=== PATIENT | female | born 1950 | race Caucasian/White ===

== ENCOUNTER → 2016-03-18 | Outpatient (CLI) | payer BC ==
[~2016-03-18] MED LIST: ASPI81TA28 PO; ATRIN INH; CETI10TA84 PO; CHOL1000 PO; CMD4 PO; EVS60 PO; FLUT0.15 NAE; IBUP-1050 PO; IRBE-43 PO; MONT1TAB3 PO; MULT-506 PO; TRIA37.5 PO
[2016-03-18 11:10] LABS: BASO % 0.9 %; BASO ABS # 0.08 K/uL (0-0.2); COMPLETE YES; EOS % 3.8 %; HEMATOCRIT 40.3 % (37-47); IG% 0.2 %; LYMPH % 30.4 %; LYMPH ABS # 2.71 K/uL (1.2-3.4); MEAN CORPUSCULAR HEMOGLOBIN 30.6 pg (25-34); MEAN CORPUSCULAR HGB CONC 34.7 g/dl (32-36); MEAN PLATELET VOLUME 10.3 fL (7.4-10.4); MONO % 5.2 %; NEUT % 59.5 %; PLATELET COUNT 275 K/uL (130-400); RED BLOOD COUNT 4.58 M/uL (4.2-5.4); WHITE BLOOD COUNT 8.92 K/uL (4.8-10.8)
[2016-03-18 11:58] LABS: BLOOD UREA NITROGEN 20 mg/dl (7-18); BUN/CREATININE RATIO 18.5 (10-20); CALCIUM 9.9 mg/dl (8.5-10.1); CARBON DIOXIDE 29 mmol/L (21-32); CHLORIDE 104 mmol/L (98-107); GLUCOSE 238 mg/dl (70-99); POTASSIUM 3.5 mmol/L (3.5-5.1); SODIUM 142 mmol/L (136-145)
== END | disposition home or self-care (01) ==
LOC: C.CPL 10:37
PROVIDERS: ATTEND Surgery
DX: D24.9 Benign neoplasm of unspecified breast (principal)

== ENCOUNTER → 2016-04-07 | Day surgery (SDC) | payer BC ==
[2016-03-25 15:23] VITALS: Ht 165.1 cm; Wt 100.0 kg
[~2016-04-07] VITALS: Ht 165.1 cm; Wt 100.0 kg
[~2016-04-07] MED LIST changes: +ATROPINE SULFATE 0.1 MG/ML 5ML SYR IV PRN; +CHLOROPROCAINE INJ ONE; +CIPROFLOXACIN / D5W 400 MG IV SCH; -CMD4 PO; +DEXAMETHASONE SOD INJ 4 MG/ML VIAL IV PRN; -EVS60 PO; +EpHEDrine SULFATE INJ 50 MG/ML AMP IV PRN; +FENTANYL CITRATE INJ 50 MCG/1 ML 2 ML VIAL IV PRN; +FENTANYL CITRATE INJ 50 MCG/1 ML 2 ML VIAL ONE; +HEPARIN SOD 5000 UNIT/0.5 ML CARP SQ STA; +IBUPROFEN 200 MG TAB ONE; +IBUPROFEN 600 MG TAB PO PRN; +KETOROLAC TROMETHAMINE 30 MG/ML VIAL IV. PRN; +LABETALOL HCL IV 5 MG/ML 20ML IV PRN; +LACTATED RINGER'S 1000ML 1,000 ML IV SCH; +LIDOCAINE HCL 2% 2 ML VIAL (20MG/ML) ONE; +LIDOCAINE/EPINEPHRINE 1% INJ 50 ML VIAL ONE; +METOCLOPRAMIDE HCL INJ 5 MG/ML 2 ML VIAL IV PRN; +MIDAZOLAM HCL 1 MG/ML 2ML VIAL ONE; +MoRPHine SULFATE 10 MG/ML CARP/VIAL IV PRN; +ONDANSETRON INJ 2 MG/ML 2 ML VIAL IV PRN; +ONDANSETRON INJ 2 MG/ML 2 ML VIAL ONE; +PHENYLEPHRINE 100MCG/ML 5ML SYR IV PRN; +PROPOFOL IV EMULSION 10 MG/ML 20 ML VIAL IV ONE; +SODIUM CHLORIDE 0.9% 1000ML 1,000 ML IV SCH; -TRIA37.5 PO
--- NOTE | 2016-04-07 09:53 | History & Physical Bridge Note ---
H&P Re-Evaluation Bridge Note: I have examined the patient, reviewed the History & Physical and in the interval since the performance of the History & Physical I have noted the following changes of clinical significance: No changes noted
--- NOTE | 2016-04-07 09:59 | Discharge Instructions-SurgCtr ---
Discharge Instructions Visit Reason for Visit: Left Breast Papilloma Discharge Goals Goal(s): Decrease discomfort, Improve function Medications Stopped Medications Name(s): ASA- last taken 04/01/16 Activity Recommendations Activity Limitations: as noted below Lifting Limitations: no more than 10 pounds Exercise/Sports Limitations: until after follow-up appointment May Resume Sexual Activity: after follow-up appointment Shower/Bathe: tomorrow Anesthesia . Post Anesthesia Instructions: If you have had General Anesthesia or IV Sedation: * Do not drive today. * Resume driving when surgeon permits. * Do not make important decisions or sign legal documents today. * Call surgeon for: 1. Temperature elevations greater than 101 degrees F. 2. Uncontrollable pain. 3. Excessive bleeding. 4. Persistent nausea and vomiting. 5. Medication intolerance (nausea, vomiting or rash). * For nausea and vomiting use only clear liquids such as: tea, soda, bouillon until nausea subsides, then gradually increase diet as tolerated. * If you have any concerns or questions, call your surgeon's office. If physician is unavailable and it is an emergency, call 911 or go to the nearest emergency room. . Instructions / Follow-Up Instructions / Follow-Up follow up with Dr. Feliciano in 1-2 weeks. Diet Recommendations Home Diet: resume previous diet Procedures Procedures Performed: excision biopsy left breast Pending Studies Studies pending at discharge: yes (pathology report) Medical Emergencies . Who to Call and When: Medical Emergencies: If at any time you feel your situation is an emergency, please call 911 immediately. . Non-Emergent Contact Non-Emergency issues call your: Primary Care Provider, Surgeon Call Non-Emergent contact if: temperature is above 101, wound has increased drainage, wound has increased redness, wound has increased pain . . "Provider Documentation" section prepared by Omid Feliciano.
[2016-04-07 11:11] VITALS: TEMP 36.6
--- NOTE | 2016-04-07 11:12 | [facility] Operative Report ---
Operative Report Operative Date Apr 07, 2016. Pre-Operative Diagnosis Left breast papilloma Post-Operative Diagnosis left breast papilloma Procedure(s) Performed left breast excsional biopsy/needle LOC Surgeon Dr Feliciano Honey Processor Surgeon(s) 0 Estimated Blood Loss 10 ML Findings normal breast tissue Specimens A. Left breast needle loc biopsy Complication(s) None Disposition Recovery Room / PACU I attest to the content of the Intraoperative Record and any orders documented therein. Any exceptions are noted below.
[2016-04-07 11:34] VITALS: BP 153/84; PULSE 83; O2SAT 98
--- NOTE | 2016-04-07 11:36 | Anesthesia Progress Nt - [facility] ---
Anesthesia Post Op Note Date & Time Apr 07, 2016 at 11:35 Vital Signs Pain Intensity: 0 Vital Signs Past 12 Hours Date Time Temp Pulse Resp B/P Pulse Ox O2 Delivery O2 Flow Rate FiO2 04/07/16 11:11 36.6 90 16 146/77 97 Room Air 04/07/16 07:54 36.7 95 16 155/82 97 Room Air Notes Mental Status: alert / awake / arousable, participated in evaluation Pt Amnestic to Procedure: Yes Nausea / Vomiting: adequately controlled Pain: adequately controlled Airway Patency, RR, SpO2: stable & adequate BP & HR: stable & adequate Hydration State: stable & adequate Anesthetic Complications: no major complications apparent
--- NOTE | 2016-04-07 11:39 | OPERATIVE REPORT ---
DATE OF OPERATION: 04/07/2016 PREOPERATIVE DIAGNOSIS: Abnormality on mammogram of the left breast. POSTOPERATIVE DIAGNOSIS: Same, suspected papilloma. PROCEDURE: Left breast lumpectomy with needle localization. SURGEON: Dr. Feliciano. ESTIMATED BLOOD LOSS: 10 mL. COMPLICATIONS: No immediate. ANESTHESIA: MAC with local. OPERATIVE NOTE: Prior to bringing her in the OR the patient was taken to radiology and needle localization was performed. She was then transferred over to the surgery center where she was brought into the operating suite. She was placed supine on the table and IV sedation was administered by anesthesia. The dressing from the needle localization was taken down and the entire left breast, including the wire, were sterilely prepped and draped in the usual fashion. We began by injecting some local anesthetic under the skin to create a skin wheal above the needle. I then along the lines of Rae create a vertical incision just superior to the needle entrance site. We made skin flaps inferior and superior and carried it down through the soft tissue. I continued to slowly use electrocautery to dissect normal tissue around the wire going clear down until I could palpate the tip of the wire. I then grasped the entire area of breast tissue with an Allis clamp and continued to use electrocautery to remove the entire lump surrounding the needle in 1 piece. Once I had the specimen out, it was sent to radiology. I did in fact call in the room ensuring that we had the previously placed clip in the specimen. Controlled any bleeding points using electrocautery. I then thoroughly irrigated the wound. It was closed in multiple layers using 2-0 Vicryl for deep layers, 3-0 Vicryl for mid layers and 4-0 Monocryl for the skin. Benzoin and Steri-Strips were placed. The patient was awakened and transferred to recovery in stable condition. I attest to the content of the Intraoperative Record and any orders documented therein. Any exceptio ns are noted below.
--- NOTE | 2016-04-07 13:25 | MAMMOGRAPHY REPORT ---
SPECIMEN: 04/07/2016 CLINICAL HISTORY: Left breast surgical excision specimen. Please refer to the report from the left breast needle localization with imaging performed at the [facility] time for full detail. IMPRESSION: SPECIMEN Please refer to the report from the left breast needle localization with imaging performed at the [facility] time for full detail. Jenifer Hardin M.D. ay/:04/07/2016 08:31:48 Hob Machine Operator: [place] Nair, [facility]
--- NOTE | 2016-04-07 13:25 | MAMMOGRAPHY REPORT ---
NEEDLE LOCALIZATION LEFT BREAST: 04/07/2016 CLINICAL HISTORY: Biopsy-proven papilloma in the 2:00 left breast. Patient presents for preoperativ e needle and wire localization. Patient also reports itchiness and pain at the site of prior biopsy and thinks it may be related to the biopsy marker clip, as she reports metal allergies. Patient al so reports allergy to lidocaine and therefore Chloroprocaine was utilized for this procedure. The p atient tolerated Chloroprocaine well during the ultrasound-guided core biopsy. COMPARISON: Comparison is made to exams dated: 02/25/2016 ultrasound biopsy, 02/25/2016 mammogram, 02/12/2016 mammogram, 02/12/2016 ultrasound, 01/24/2016 mammogram, and 04/30/2011 mammogram - [facility]. PATIENT CONSENT: The patient verbalized allergies to lidocaine and metals as well as numerous other allergies prior to the procedure. A time out was performed in the left breast was agreed as the sit e for preoperative needle and wire localization. Postprocedure mammograms obtained after core needle biopsy and cyst aspiration in the left breast on 02/25/2016 were reviewed. The metallic biopsy marker clip in the 2:00 middle one third of the left breast is the intended target for preoperative needle and wire localization, as this represents the biopsy-proven papilloma. After a time out was performed, while the patient was in the seated posit ion, the left breast was placed in lateralmedial compression. Mammography was performed and the he biopsy marker clip was targeted utilizing an alphanumeric grid. The skin of the lateral left breas t was cleansed with alcohol. Chloroprocaine was administered as local anesthesia. A 5 cm Bose I I needle and wire combination was inserted into the breast. Left breast positioning was then change d to CC from above and adjustments were made as to the needle depth. Then the needle was removed le aving the wire in place. The location and length of the wire were discussed with the operating surg dora prior to surgery. The specimen radiograph demonstrates the localizing wire and ribbon-shaped metallic biopsy marker cl ip, compatible with successful preoperative localization and surgical and surgical excision. Final pathology is pending. IMPRESSION: NEEDLE LOCALIZATION Status post preoperative needle and wire localization for the biopsy-proven papilloma in the 2:00 le ft breast. The imaged specimen includes the biopsy marker clip denoting the site of the biopsy. Pending benign pathology results, follow-up diagnostic mammograms and ultrasound of the left breast are recommended to ensure stability of other findings, previously described, in 6 months. The patient will receive notification of the biopsy results from her referring physician. Jenifer Hardin M.D. ay/:04/07/2016 11:08:19 Attending Technologist: [place] Nair, [facility] Head Kiln Operator: Bhargavi Curran RT(R)(M), [facility]
== END | disposition home or self-care (01) ==
LOC: X.SURG 07:29
PROVIDERS: ATTEND Surgery
DX: D24.2 Benign neoplasm of left breast (principal); N60.82 Other benign mammary dysplasias of left breast; Z86.711 Personal history of pulmonary embolism; J45.909 Unspecified asthma, uncomplicated; E11.9 Type 2 diabetes mellitus without complications; E78.00 Pure hypercholesterolemia, unspecified; I10 Essential (primary) hypertension; M85.80 Other specified disorders of bone density and structure, unspecified site; Z90.49 Acquired absence of other specified parts of digestive tract; Z90.710 Acquired absence of both cervix and uterus; Z98.890 Other specified postprocedural states; Z87.891 Personal history of nicotine dependence; E66.9 Obesity, unspecified; Z79.82 Long term (current) use of aspirin; Z68.36 Body mass index [BMI] 36.0-36.9, adult; Z82.49 Family history of ischemic heart disease and other diseases of the circulatory system; Z80.9 Family history of malignant neoplasm, unspecified; Z83.3 Family history of diabetes mellitus; Z82.3 Family history of stroke

== ENCOUNTER → 2016-10-05 | Outpatient (CLI) | payer BC ==
[~2016-10-05] MED LIST changes: -ATROPINE SULFATE 0.1 MG/ML 5ML SYR IV PRN; -CHLOROPROCAINE INJ ONE; -CIPROFLOXACIN / D5W 400 MG IV SCH; -DEXAMETHASONE SOD INJ 4 MG/ML VIAL IV PRN; -EpHEDrine SULFATE INJ 50 MG/ML AMP IV PRN; -FENTANYL CITRATE INJ 50 MCG/1 ML 2 ML VIAL IV PRN; -FENTANYL CITRATE INJ 50 MCG/1 ML 2 ML VIAL ONE; -HEPARIN SOD 5000 UNIT/0.5 ML CARP SQ STA; -IBUPROFEN 200 MG TAB ONE; -IBUPROFEN 600 MG TAB PO PRN; -KETOROLAC TROMETHAMINE 30 MG/ML VIAL IV. PRN; -LABETALOL HCL IV 5 MG/ML 20ML IV PRN; -LACTATED RINGER'S 1000ML 1,000 ML IV SCH; -LIDOCAINE HCL 2% 2 ML VIAL (20MG/ML) ONE; -LIDOCAINE/EPINEPHRINE 1% INJ 50 ML VIAL ONE; -METOCLOPRAMIDE HCL INJ 5 MG/ML 2 ML VIAL IV PRN; -MIDAZOLAM HCL 1 MG/ML 2ML VIAL ONE; -MoRPHine SULFATE 10 MG/ML CARP/VIAL IV PRN; -ONDANSETRON INJ 2 MG/ML 2 ML VIAL IV PRN; -ONDANSETRON INJ 2 MG/ML 2 ML VIAL ONE; -PHENYLEPHRINE 100MCG/ML 5ML SYR IV PRN; -PROPOFOL IV EMULSION 10 MG/ML 20 ML VIAL IV ONE; -SODIUM CHLORIDE 0.9% 1000ML 1,000 ML IV SCH
--- NOTE | 2016-10-05 14:32 | MAMMOGRAPHY REPORT ---
BILATERAL DIGITAL DIAGNOSTIC MAMMOGRAM TOMOSYNTHESIS WITH CAD AND TARGETED BILATERAL ULTRASOUND: 10/05 CLINICAL HISTORY: History of surgical excision of a left breast papilloma March 2016. The patient reports no current complaints. TECHNIQUE: Breast tomosynthesis in addition to standard 2D mammography was performed. Current study was also evaluated with a Computer Aided Detection (CAD) system. Bilateral CC and MLO 2-D and tomosy nthesis images were obtained. COMPARISON: Comparison is made to exams dated: 04/07/2016 localization, 04/07/2016 specimen, 6 ultrasound biopsy, 02/25/2016 mammogram, 02/12/2016 mammogram, and 02/12/2016 ultrasound - [facility] BREAST COMPOSITION: There are scattered areas of fibroglandular density in both breasts. FINDINGS: There are new post surgical changes in the left upper outer quadrant from prior benign aurelia gical excision, including new density and architectural distortion at the surgical bed. A linear sca r marker denotes a scar on the left upper outer breast. The previously described small 7 mm mass wit h obscured margins in the left lateral breast on the cc view does not appear significantly changed co mpared to the January 2016 exam. Additionally, the 2 adjacent circumscribed oval masses in the righ t upper inner breast are also stable. The remainder of both breasts are stable compared to prior exa ms, without suspicious masses, calcifications, or areas of architectural distortion noted. A linear scar marker denotes a scar on the right breast. Scattered bilateral benign-appearing calcifications are stable. Targeted ultrasound was performed of the area of the previously seen right breast masses. In the rig ht breast at 1:00, 5 cm from the nipple, there is an oval anechoic circumscribed mass with a thin int ernal septation measuring 6 x 5 x 7 mm, not significantly changed compared to the January 2016 exam and consistent with a benign cyst. Adjacent to this is an oval circumscribed 4 x 4 mm mass, which is partially anechoic but does have echogenic material within it. The mass is stable compared to the 2015 exam and is probably benign and likely represents a complicated cyst. Targeted ultrasound was performed of the left lateral breast in the region of the stable mammographic mass. In the left breast at 3:00, 9 cm from the nipple, there is an oval circumscribed 4 x 3 mm mas s which is partially anechoic but has some echogenic material within it and likely represents a compl icated cyst. This may correspond with the cyst that was previously aspirated in February. In the le ft breast at 3:00, 3 cm from the nipple, there is an isoechoic circumscribed 5 x 2 mm mass versus nor mal fat lobule. In the left breast at 2:00, 6 cm from the nipple, there is an oval anechoic benign c yst which measures 4 x 3 mm. Expected post surgical changes are seen within the left breast at 2:00 on ultrasound. It is unclear which of these may correspond with the stable mammographic mass in the left lateral breast. IMPRESSION: ACR-BI-RADS CATEGORY 3: PROBABLY BENIGN, TARGETED ULTRASOUND ACR-BI-RADS CATEGORY 3: PRO BABLY BENIGN Stable 7 mm mass in the left lateral breast mammographically, with a few small masses seen on ultraso und in the left lateral breast which are probably benign and likely represent simple and complicated cysts. Small 4 mm mass in the right 1:00 breast on ultrasound is also stable and is probably benign and likely represents a complicated cyst. Recommend bilateral diagnostic tomosynthesis mammograms in 6 months to reevaluate bilateral breast masses. The patient has been verbally notified of the results. Approximately 10% of breast cancers are not detected with mammography. A negative mammographic report should not delay biopsy if a clinically suggestive mass is present. Olive Pardo M.D. ah/:10/05/2016 12:11:44 Staff Mechanical Engineer: [place] Nair, [facility] letter sent: Follow Up Recommended 3 BI-RADS Code: ACR-BI-RADS Category 3: Probably Benign Ultrasound BI-RADS: ACR-BI-RADS Category 3: Pr obably Benign
== END | disposition home or self-care (01) ==
LOC: C.MAMM 08:39
PROVIDERS: ATTEND Surgery
DX: Z09 Encounter for follow-up examination after completed treatment for conditions other than malignant neoplasm (principal); D24.2 Benign neoplasm of left breast; R92.8 Other abnormal and inconclusive findings on diagnostic imaging of breast

== ENCOUNTER → 2017-04-08 | Outpatient (CLI) | payer BC ==
--- NOTE | 2017-04-09 13:25 | MAMMOGRAPHY REPORT ---
BILATERAL DIGITAL DIAGNOSTIC MAMMOGRAM TOMOSYNTHESIS WITH CAD AND TARGETED BILATERAL ULTRASOUND: 04/08 CLINICAL HISTORY: History of surgical excision of a left breast papilloma March 2016. She also rep orts a remote benign right breast excision. She reports some pain at her surgical bed in the left br east. She presents for follow-up of bilateral breast masses. TECHNIQUE: Breast tomosynthesis in addition to standard 2D mammography was performed. Current study was also evaluated with a Computer Aided Detection (CAD) system. Bilateral CC and MLO 2-D and tomosy nthesis images and spot magnification left CC and ML views were obtained. COMPARISON: Comparison is made to exams dated: 10/05/2016 ultrasound, 10/05/2016 mammogram, 02/25/2016 ultrasound biopsy, 02/25/2016 mammogram, 02/12/2016 mammogram, and 01/24/2016 mammogram - [facility]. BREAST COMPOSITION: There are scattered areas of fibroglandular density in both breasts. FINDINGS: Again noted are postsurgical changes in the left upper outer quadrant from prior excision of a left breast papilloma, including stable density and distortion at the surgical bed. Spot magnif ication views of the surgical bed demonstrate new grouped punctate and amorphous calcifications at th e surgical bed. Calcifications are probably benign and likely represent dystrophic calcifications fr om fat necrosis. Remainder of both breasts are stable compared to prior exams. Small lobulated 6 mm mass within the left lateral breast on the cc view is stable dating back to at least the February 01 exam and is therefore probably benign. Other circumscribed bilateral benign-appearing masses are not significantly changed. 2 adjacent circumscribed masses in the right upper inner quadrant are sta ble dating back to the January 2016 exam. Other scattered bilateral benign-appearing calcifications are stable. Linear scar markers denote scars on the left upper outer and right medial breast. Targeted ultrasound was performed of the areas of the previously seen bilateral breast masses for whi ch follow-up was recommended. In the right breast at 1:00, 5 cm from the nipple, again noted is an a nechoic circumscribed benign cyst which measures 4 x 6 mm, unchanged. Adjacent to this is a round ci rcumscribed partially anechoic and partially isoechoic 4 x 3 mm mass, stable dating back to the 2015 exam and is probably benign and likely represents a complicated cyst. These 2 adjacent mass es correspond with the stable mammographic mass. In the left breast at 2:00, there is ill-defined hypoechoic tissue consistent with postsurgical bernard es. A small anechoic benign simple cyst measuring 3 mm is seen within the left breast at 2:00, 6 cm from the nipple. In the left breast at 3:00, 3 cm from the nipple, there is a parallel circumscribed isoechoic 5 x 2 mm mass, which is stable compared to the September 2016 exam. On the current exam this i s shown to be contiguous with a duct. The mass is probably benign and may represent a papilloma or c omplicated cyst. The previously seen mass in the left breast at 3:00, 9 cm from the nipple, is no lo nger evident. IMPRESSION: ACR-BI-RADS CATEGORY 3: PROBABLY BENIGN, TARGETED ULTRASOUND ACR-BI-RADS CATEGORY 3: PRO BABLY BENIGN 1. New punctate and amorphous calcifications at the surgical bed in the left upper outer quadrant. The calcifications are probably benign and may represent dystrophic calcifications from fat necrosis. Recommend follow-up diagnostic mammograms in 6 months to reevaluate. 2. Small circumscribed benign-appearing masses in the right 1:00 breast and left 3:00 breast on ultr asound and a small circumscribed mass within the left lateral breast mammographically are stable and are probably benign. Recommend bilateral diagnostic tomosynthesis mammograms and targeted ultrasound in 6 months to reevaluate. The patient has been verbally notified of the results. Approximately 10% of breast cancers are not detected with mammography. A negative mammographic report should not delay biopsy if a clinically suggestive mass is present. Olive Pardo M.D. ah/:04/08/2017 16:21:29 Lye Peel Operator: Mitali ROTHMAN)(Pato), [facility] letter sent: Follow Up Recommended 3 BI-RADS Code: ACR-BI-RADS Category 3: Probably Benign Ultrasound BI-RADS: ACR-BI-RADS Category 3: Pr obably Benign
== END | disposition home or self-care (01) ==
LOC: C.MAMM 10:17
PROVIDERS: ATTEND Family Medicine
DX: R92.1 Mammographic calcification found on diagnostic imaging of breast (principal); N63.10 Unspecified lump in the right breast, unspecified quadrant; N63.20 Unspecified lump in the left breast, unspecified quadrant

== ENCOUNTER → 2017-10-20 | Outpatient (CLI) | payer OTHER, BC ==
--- NOTE | 2017-10-21 15:14 | MAMMOGRAPHY REPORT ---
BILATERAL DIGITAL DIAGNOSTIC MAMMOGRAM TOMOSYNTHESIS WITH CAD AND BILATERAL ULTRASOUND: 10/20/2017 CLINICAL HISTORY: Short interval follow-up of bilateral breast masses in left breast calcifications. History of surgical excision of a left breast papilloma March 2016. TECHNIQUE: The study was acquired using full field digital technology and interpreted from soft copy. Breast tomosynthesis in addition to standard 2D mammography was performed. Current study was also ev aluated with a Computer Aided Detection (CAD) system. Bilateral CC and MLO 2D and tomosynthesis imag es and spot magnification left CC and MLO views were obtained. COMPARISON: Comparison is made to exams dated: 04/08/2017 mammogram, 10/05/2016 mammogram, 02/25/2016 mammogram, 02/12/2016 mammogram, 01/24/2016 mammogram, and 04/07/2016 [facility]. BREAST COMPOSITION: There are scattered areas of fibroglandular density in both breasts. FINDINGS: Again noted are post surgical changes in the left upper outer quadrant from prior excision of a papil di. A linear scar marker overlies the left upper outer breast. Spot magnification views of the patel rgical bed demonstrate interval coarsening of the grouped amorphous calcifications, compared to the an2017 exam. Given the interval coarsening, the calcifications appear more benign and have the appearance of dystrophic calcifications from fat necrosis. The remainder of both breasts are stable compared to prior exams, without suspicious masses, calcifications, or areas of architectural distort ion noted. Nodular asymmetry within the left lateral breast on the cc view is stable dating back to at least the January 2016 exam. Lobulated mass in the right upper inner quadrant is also stable brian ing back to the January 2016 exam. Other bilateral asymmetries and scattered bilateral benign appea ring calcifications are not significantly changed. Targeted ultrasound was performed of bilateral breast masses for which follow-up was recommended. In the right breast at 1:00, 5 cm from the nipple, again noted is a circumscribed anechoic mass with a few thin internal septations, measuring 7 x 5 x 5 mm, not significantly changed dating back to the 2015 exam. Adjacent to this is a round circumscribed 3 x 4 x 3 mm mass which is partially ane choic and partially isoechoic, also not significantly changed compared to the January 2016 exam. Th e 2 adjacent masses correspond with the stable mammographic mass. Findings are probably benign and m ay represent complicated cysts or less likely papillary lesions. In the left breast at 3:00, approximately 3 cm from the nipple, there is a parallel circumscribed iso echoic 6 x 2.3 mm mass, which is not significantly changed compared to the March 2017 exam. This i s contiguous with a milk duct and may represent a papilloma or other benign mass. The options of amanda rt interval follow-up versus biopsy were discussed with the patient, and she would prefer continued f ollow-up at this time. IMPRESSION: ACR-BI-RADS CATEGORY 3: PROBABLY BENIGN, ULTRASOUND ACR-BI-RADS CATEGORY 3: PROBABLY ARELIS GN 1. Interval coarsening of amorphous calcifications at the surgical bed in the left upper outer quadr ant. The calcifications are probably benign and likely represent dystrophic calcifications from fat necrosis. 2. Small circumscribed benign-appearing masses in the right 1:00 breast and left 3:00 breast are sta ble compared to prior exams and are probably benign. Recommend bilateral diagnostic tomosynthesis mammograms and repeat targeted ultrasound in 6 months to confirm longer stability of bilateral breast masses and left breast calcifications. The patient has been verbally notified of the results. Some breast cancers are not detected with mammography. A negative mammographic report should not marii y biopsy if a clinically suggestive mass is present. Olive Pardo M.D. ah/:10/20/2017 14:57:43 Reamer Hand: RT Dalia(Maria)(M), [facility] letter sent: Follow Up Recommended 3 OVERALL STUDY BIRADS: 3 Probably benign
== END | disposition home or self-care (01) ==
LOC: C.MAMM 09:59
PROVIDERS: ATTEND Family Medicine
DX: R92.1 Mammographic calcification found on diagnostic imaging of breast (principal); N63.12 Unspecified lump in the right breast, upper inner quadrant; N63.20 Unspecified lump in the left breast, unspecified quadrant; Z98.890 Other specified postprocedural states

== ENCOUNTER → 2017-11-04 | Outpatient (CLI) | payer BC ==
--- NOTE | 2017-11-04 16:56 | DIAGNOSTIC IMAGING REPORT ---
ULTRASOUND R VENOUS DOPP LOWER EXT UNILAT CLINICAL HISTORY: RT LEG PAIN COMPARISON STUDY: No previous studies for comparison. FINDINGS: Real-time and color flow Doppler imaging were performed. Flow was seen within the femoral, popliteal and calf veins with no intraluminal thrombus demonstrated. The saphenous vein is patent. There is a thrombosed superficial varicosity at the medial knee region. IMPRESSION: 1. No evidence of right lower extremity DVT 2. Thrombosed superficial varicosity at the medial knee region Electronically signed by: Ruel Martinez M.D. 11/04/2017 4:55 PM Dictated Date/Time: 11/04/2017 4:54 PM
== END | disposition home or self-care (01) ==
LOC: C.ULTR 16:16
PROVIDERS: ATTEND Family Medicine
DX: R60.0 Localized edema (principal); I82.811 Embolism and thrombosis of superficial veins of right lower extremity

== ENCOUNTER 2020-06-29 06:07 | Inpatient (IN) ==
--- NOTE | 2020-06-29 06:52 | Emergency Department Note ---
History of Present Illness General Chief complaint: Shoulder Pain Stated complaint: PAIN ACROSS BACK OF SHOULDERS AND UP NECK Time Seen by Provider: 06/29/20 06:23 Source: patient Mode of arrival: ambulatory Limitations: no limitations History of Present Illness Provider complaint: left upper back pain Maximum Pain Intensity: 3 This is a 70-year-old female who presents to the ED with a chief complaint of left posterior shoulder pain. She states that her allergies started acting up on Wednesday. Yesterday she had a lumpectomy. Today she complains of left posterior shoulder pain that is a burning sensation. She states that ibuprofen helps some. Denies shortness of breath. She also complains of some jaw pain. She is primarily concerned about a blood clot as she has history of PE. She also reports that her recently . The patient denies any fevers or cough. No nausea or vomiting. No additional complaints. Denies specific chest pains initially but when asked, reports symptoms similar to asthma. Home Medications Medication Instructions Recorded Confirmed Type aspirin 81 mg tablet,delayed 81 mg PO HS 06/18/20 06/20/20 History release cetirizine 10 mg tablet 10 mg PO HS 06/18/20 06/20/20 History fluticasone propionate 50 1 spray INTRANASAL HS 06/18/20 06/20/20 History mcg/actuation nasal spray,suspension ibuprofen 200 mg tablet 200 mg PO Q8H PRN 06/18/20 06/20/20 History irbesartan 150 1 tab PO QAM 06/18/20 06/20/20 History mg-hydrochlorothiazide 12.5 mg tablet montelukast 10 mg tablet 10 mg PO HS 06/18/20 06/20/20 History multivitamin 1 tab PO QAM 06/18/20 06/20/20 History Atrovent HFA 1 puff INHALATION QID PRN 06/20/20 06/20/20 History Ozempic 0.25 mg SUBCUT WK 06/20/20 06/20/20 History Allergies Allergy/AdvReac Type Severity Reaction Status Date / Time epinephrine Allergy Severe HIVES, Verified 06/20/20 13:29 TACHYCARDIA, PANIC ATTACK acetaminophen Allergy Unknown OVERSTIMULA Verified 06/20/20 13:29 TION albuterol Allergy Unknown TACHYCARDIA Verified 06/20/20 13:29 AND ITCHING benzonatate Allergy Unknown UNABLE TO Verified 06/20/20 13:29 SLEEP fexofenadine Allergy Unknown ITCHING Verified 06/20/20 13:29 AND UNABLE TO SLEEP iodine Allergy Unknown N/V Verified 06/20/20 13:29 lisinopril Allergy Unknown COUGHING Verified 06/20/20 13:29 loratadine Allergy Unknown DRY MOUTH Verified 06/20/20 13:29 metformin Allergy Unknown ABDOMINAL Verified 06/20/20 13:29 PAIN AND N/V naproxen Allergy Unknown DIZZINESS Verified 06/20/20 13:29 oxycodone Allergy Unknown OVERSTIMULA Verified 06/20/20 13:29 TION Penicillins Allergy Unknown RASH Verified 06/20/20 13:29 pirbuterol Allergy Unknown TACHYCARDIA Verified 06/20/20 13:29 AND ITCHING povidone-iodine Allergy Unknown BLISTERS Verified 06/20/20 13:29 AND RASH propoxyphene Allergy Unknown OVERSTIMULA Verified 06/20/20 13:29 TION Fvjrkvq-Auk-Onv Reductase Allergy Unknown RASH Verified 06/20/20 13:29 Inhibitor procaine AdvReac Unknown HYPERSENSIT Verified 06/20/20 13:29 IVITY shrimp AdvReac Unknown SEAFOOD--N/ Verified 06/20/20 13:29 V BETADINE Allergy Intermediate Swelling Uncoded 06/20/20 13:29 TRACE METALS Allergy Unknown SKIN Uncoded 06/20/20 13:29 IRRITATION Past Med/Surg History Medical History Anxiety Asthma rare use of PRN inh Depression DM type 2 (diabetes mellitus, type 2) History of kidney stones History of pulmonary embolism 2010 - was on Evista at the time - treated w/ AC therapy x 6 mo HLD (hyperlipidemia) HTN (hypertension) Migraines Osteoarthritis Surgical History H/O breast surgery Excision of Left breast papilloma 2016 Dr. Feliciano H/O: hysterectomy History of arthroscopic knee surgery History of colonoscopy History of D&C History of esophagogastroduodenoscopy (EGD) History of laparoscopic cholecystectomy History of lithotripsy History of tonsillectomy and adenoidectomy Family History Father Heart disease Cancer Mother Hypertension Sister Cancer Grandmother (Maternal) Hypertension Grandmother (Paternal) Diabetes Other No family history of adverse response to anesthesia Social History Smoking Status: Never smoker Second Hand Exposure: Yes (hx); Hx Alcohol Use: Yes Hx Substance Use: No Preferred Language: [place] Communication Ability: Effective Beliefs That Will Affect Care: None marital status: / Current Living Situation: Family Current Living Situation Comment: dtr lives with pt current occupational status: employed 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 Safe at Home: Yes Assistive Devices: Glasses Review of Systems A total of 10 systems reviewed and were otherwise negative Physical Exam Vital Signs Vital Signs - 24 hr 06/29/20 06:11 06/29/20 06:39 06/29/20 07:26 Temperature 36.0 C L Temperature Source Temporal Artery Scan Pulse Rate 84 Pulse Rate [Apical] 104 H Respiratory Rate 16 18 Blood Pressure 153/69 H Blood Pressure [Left Arm] 144/89 H Blood Pressure Mean 97 Blood Pressure Mean [Left Arm] 107 Pulse Oximetry 99 98 97 Oxygen Delivery Method Room Air Room Air Room Air Sepsis Recent Fever Within 48 Hours No Sepsis New/Unexplained Change in Mental Status No Sepsis Action Taken by Nursing No Action Required CONSTITUTIONAL/VITAL SIGNS: Reviewed / noted above. GENERAL: Non-toxic in appearance. INTEGUMENTARY: Warm, dry, and [place]. HEAD: Normocephalic. EYES: without scleral icterus or trauma. ENT/OROPHARYNX: clear and moist. LYMPHADENOPATHY/NECK: Is supple without lymphadenopathy or meningismus. RESPIRATORY: Lungs clear and equal. CARDIOVASCULAR: Regular rate and rhythm. GI/ABDOMEN: Soft and nontender. No organomegaly or pulsatile mass. No rebound or guarding. Normal bowel sounds. EXTREMITIES: Warm and well perfused. BACK: No CVA tenderness. NEUROLOGICAL: Intact without focal deficits. PSYCHIATRIC: normal affect. MUSCULOSKELETAL: Normally developed with good muscle tone. There is some tenderness to palpation of the left rhomboids area muscles. TRIAGE NURSING DOCUMENTATION REVIEWED. Course Administered Medications Discontinued Medications Aspirin (Aspirin Chew 324 Mg) 324 mg PO NOW STA Stop: 06/29/20 07:14 Last Admin: 06/29/20 07:27 Dose: 324 mg Documented by: [id number] Ticagrelor (Ticagrelor 90 Mg Tab) 180 mg PO ONE ONE Stop: 06/29/20 07:14 Last Admin: 06/29/20 07:27 Dose: 180 mg Documented by: [id number] Critical Care Time Critical Care Time: Yes Total Critical Care Time: 30 I have personally spent 30 minutes of critical care time in the direct manage ment of this patient. This includes bedside care, interpretation of diagnostic studies, and testing, discussion with consultants, patient, and family members, and other required patient management activities. This 30 minutes is in excess of all separately billable procedures. Medical Decision Making Differential Diagnosis The differential that was considered includes acute myocardial infarction, acute coronary syndrome, myocarditis, pericarditis, pericardial effusions /tamponade, esophageal perforation, thoracic aortic dissection, pulmonary embolism, pneumonia, pneumothorax, pancreatitis, shingles, acute cholecystitis, perforated abdominal viscus. Medical Records Attestation: I reviewed the patient's medical records. Home Medications Current Medication List: was personally reviewed by me Laboratory Data Attestation: I reviewed the patient's lab results. Result diagrams: 06/29/20 07:00 06/29/20 07:00 Lab Results 06/29/20 06/29/20 06/29/20 Range/Units 07:00 07:00 07:00 WBC 8.01 (4.8-10.8) K/uL RBC 4.28 (4.2-5.4) M/uL Hgb 13.0 (12.0-16.0) g/dL Hct 37.1 (37-47) % MCV 86.7 (80-100) fL MCH 30.4 (25-34) pg MCHC 35.0 (32-36) g/dL RDW Std Deviation 38.7 (36.4-46.3) fL RDW Coeff of Manoj 12.2 (11.5-14.5) % Plt Count 282 (130-400) K/uL MPV 10.7 H (7.4-10.4) fL Immature Gran % (Auto) 0.4 % Neut % (Auto) 68.1 % Lymph % (Auto) 23.3 % [place] % (Auto) 5.7 % Eos % (Auto) 2.0 % Baso % (Auto) 0.5 % Neut # (Auto) 5.45 (1.4-6.5) K/uL Lymph # (Auto) 1.87 (1.2-3.4) K/uL [place] # (Auto) 0.46 (0.11-0.59) K/uL Eos # (Auto) 0.16 (0-0.5) K/uL Baso # (Auto) 0.04 (0-0.2) K/uL Immature Gran # (Auto) 0.03 H (0.00-0.02) K/uL D-Dimer 580 H* (0-500) ug/L FEU Sodium 137 (136-145) mmol/L Potassium 3.3 L (3.5-5.1) mmol/L Chloride 104 (98-107) mmol/L Carbon Dioxide 27 (21-32) mmol/L Anion Gap 7.0 (3-11) BUN 17 (7-18) mg/dl Creatinine 1.01 (0.6-1.2) mg/dl Est Cr Clr Drug Dosing 57.8 ml/min Est GFR ( Amer) 64.9 Est GFR (Non-Af Amer) 56.0 BUN/Creatinine Ratio 17.1 (10-20) Glucose 244 H (70-99) mg/dl Calcium 9.9 (8.5-10.1) mg/dl Total Bilirubin 0.7 (0.2-1) mg/dl AST 18 (15-37) U/L ALT 26 (12-78) U/L Alkaline Phosphatase 114 (45-117) U/L Troponin I 0.309 H* (0-0.045) ng/ml Total Protein 7.5 (6.4-8.2) gm/dl Albumin 3.7 (3.4-5.0) gm/dl Globulin 3.8 (2.5-4.0) gm/dl Albumin/Globulin Ratio 1.0 (0.9-2) Lipase 129 (73-393) U/L COVID-19 Eval Order 06/29/20 Range/Units 07:10 WBC (4.8-10.8) K/uL RBC (4.2-5.4) M/uL Hgb (12.0-16.0) g/dL Hct (37-47) % MCV (80-100) fL MCH (25-34) pg MCHC (32-36) g/dL RDW Std Deviation (36.4-46.3) fL RDW Coeff of Manoj (11.5-14.5) % Plt Count (130-400) K/uL MPV (7.4-10.4) fL Immature Gran % (Auto) % Neut % (Auto) % Lymph % (Auto) % [place] % (Auto) % Eos % (Auto) % Baso % (Auto) % Neut # (Auto) (1.4-6.5) K/uL Lymph # (Auto) (1.2-3.4) K/uL [place] # (Auto) (0.11-0.59) K/uL Eos # (Auto) (0-0.5) K/uL Baso # (Auto) (0-0.2) K/uL Immature Gran # (Auto) (0.00-0.02) K/uL D-Dimer (0-500) ug/L FEU Sodium (136-145) mmol/L Potassium (3.5-5.1) mmol/L Chloride (98-107) mmol/L Carbon Dioxide (21-32) mmol/L Anion Gap (3-11) BUN (7-18) mg/dl Creatinine (0.6-1.2) mg/dl Est Cr Clr Drug Dosing ml/min Est GFR ( Amer) Est GFR (Non-Af Amer) BUN/Creatinine Ratio (10-20) Glucose (70-99) mg/dl Calcium (8.5-10.1) mg/dl Total Bilirubin (0.2-1) mg/dl AST (15-37) U/L ALT (12-78) U/L Alkaline Phosphatase (45-117) U/L Troponin I (0-0.045) ng/ml Total Protein (6.4-8.2) gm/dl Albumin (3.4-5.0) gm/dl Globulin (2.5-4.0) gm/dl Albumin/Globulin Ratio (0.9-2) Lipase (73-393) U/L COVID-19 Eval Order [facility] at [facility] Imaging Data Radiologist's Impression: Chest X-Ray 06/29/20 06:35 XR chest 1V portable CLINICAL HISTORY: Atypical chest pain COMPARISON STUDY: No previous studies for comparison. FINDINGS: The heart is mildly enlarged. There is no failure. There is no focal pulmonary consolidation. There are no pleural effusions. Multiple electrodes and wires project over the chest.[ IMPRESSION: No active disease in the chest. ACT 112: Negative or not required by law. Electronically signed by: Ruel Martinez M.D. 06/29/2020 8:09 AM ECG Data Attestation: I personally reviewed and interpreted this ECG as follows: Indication: + chest pain Rate (beats per minute): 74 Rhythm: + normal sinus ECG Intervals/blocks: + Normal QT-c ECG ST segments: + ST elevation (Inferior) ECG Findings: no PVCs MDM Narrative Patient presents with a left-sided posterior shoulder pain as detailed above. Her vital signs are stable. Her blood pressure slightly elevated on initial vital signs. Exam was otherwise unremarkable. She is in no distress. She did have some tenderness in the rhomboids muscle of the left. Twelve-lead EKG shows a normal sinus rhythm with ST elevation in the inferior leads. Some reciprocal changes laterally. Heart alert was called. The patient was given aspirin p.o. as well as Brilinta p.o. Laboratory studies shows a mildly elevated troponin. CBC and chemistry panel was unremarkable. D-dimer is mildly elevated likely related to the IA. Chest x-ray did not show acute process. The patient was taken to the cardiac Motor [employer] for further evaluation and care. I did speak with a road oiler about the patient on the phone. Impression & Plan Acute IA, inferior wall Discharge Plan Visit Data Chief Complaint: Shoulder Pain Stated Complaint: PAIN ACROSS BACK OF SHOULDERS AND UP NECK ED Provider: Amilcar Skelton Discharge Problem: Acute IA, inferior wall Patient Disposition: Admitted As Inpatient Discharge Instructions Interventions: ED Discharge Assessment Last Done: 06/29/20 07:48
[2020-06-29 07:09] LABS: Basophils # (auto) 0.04 K/uL (0-0.2); Basophils % (auto) 0.5 %; Eosinophils # (auto) 0.16 K/uL (0-0.5); Hematocrit (blood only) 37.1 % (37-47); Immature Granulocytes # (auto) 0.03 K/uL (0.00-0.02); Immature Granulocytes % (auto) 0.4 %; Lymphocytes # (auto) 1.87 K/uL (1.2-3.4); Lymphocytes % (auto) 23.3 %; Mean Corpuscular Hemoglobin 30.4 pg (25-34); Mean Corpuscular Volume 86.7 fL (80-100); Mean Platelet Volume 10.7 fL (7.4-10.4); Monocytes # (auto) 0.46 K/uL (0.11-0.59); Monocytes % (auto) 5.7 %; Neutrophils # (auto) 5.45 K/uL (1.4-6.5); Neutrophils % (auto) 68.1 %; Platelet Count 282 K/uL (130-400); RDW Coefficient of Variation 12.2 % (11.5-14.5); RDW Standard Deviation 38.7 fL (36.4-46.3); Red Blood Count 4.28 M/uL (4.2-5.4); White Blood Count 8.01 K/uL (4.8-10.8)
[2020-06-29] MEDS ORDERED: TICAGRELOR 90 MG TAB PO ONE (07:13)
[2020-06-29] MEDS ORDERED: ASPIRIN CHEW 324 MG PO STA (07:13)
[2020-06-29 07:29] LABS: Albumin Level 3.7 gm/dl (3.4-5.0); BUN Creatinine Ratio 17.1 (10-20); Calcium 9.9 mg/dl (8.5-10.1); Creatinine Clr Calc Pharmacy 57.8 ml/min; Est GFR (African American) 64.9; Potassium 3.3 mmol/L (3.5-5.1)
[2020-06-29] MEDS ORDERED: niCARdipine HCL INJ 2.5 MG/ML 10 ML AMP ONE (07:30)
[2020-06-29] MEDS ORDERED: HEPARIN (PORCINE) 1000 UNIT/ML 10 ML (CATH LAB USE ONLY) ONE (07:30)
[2020-06-29] MEDS ORDERED: MIDAZOLAM HCL 1 MG/ML 2ML VIAL ONE (07:30)
[2020-06-29] MEDS ORDERED: fentaNYL citrate 100 MCG/2 ML VIAL ONE (07:31)
[2020-06-29] MEDS ORDERED: NITROGLYCERIN/D5W 100MCG/ML 20ML SYR ONE (07:31)
[2020-06-29] MEDS ORDERED: BIVALIRUDIN 250 MG VIAL (CATH LAB ONLY) ONE (07:35)
[2020-06-29 07:36] LABS: Bilirubin,Total 0.7 mg/dl (0.2-1); Globulin 3.8 gm/dl (2.5-4.0); Total Protein 7.5 gm/dl (6.4-8.2); Troponin I 0.309 ng/ml (0-0.045)
[2020-06-29 07:42] LABS: D Dimer 580 ug/L FEU (0-500)
[2020-06-29] MEDS ORDERED: methylPREDNISolone 125 MG/2 ML VIAL ONE (07:51)
[2020-06-29] MEDS ORDERED: diphenhydrAMINE 50 MG/ML VIAL ONE (07:51)
--- NOTE | 2020-06-29 08:11 | XRay Report ---
XR chest 1V portable CLINICAL HISTORY: Atypical chest pain COMPARISON STUDY: No previous studies for comparison. FINDINGS: The heart is mildly enlarged. There is no failure. There is no focal pulmonary consolidatio n. There are no pleural effusions. Multiple electrodes and wires project over the chest.[ IMPRESSION: No active disease in the chest. ACT 112: Negative or not required by law. Electronically signed by: Ruel Martinez M.D. 06/29/2020 8:09 AM
[2020-06-29 08:37] LABS: Influenza A virus by PCR Negative (Neg); Influenza B virus by PCR Negative (Neg); RSV by PCR Negative (Neg); SARS CoV2 RNA(COVID-19) InHosp NEGATIVE (Negative)
--- NOTE | 2020-06-29 08:44 | Pre Anesthesia Assessment ---
Date of Service June 29, 2020 Pre Sedation Assessment Vital Signs Temp Pulse Pulse Resp BP BP Pulse Ox 06/29/20 07:26 104 H 18 144/89 H 97 06/29/20 06:39 98 06/29/20 06:11 36.0 C L 84 16 153/69 H 99 Pre-Sedation Airway Assessment Smoking Status: Never smoker Mallampati Class: II ASA: ASA3 Notes The planned sedation has been discussed with the patient. Informed Consent was obtained. I have identified the patient, determined the appropriateness of sedation and have assessed the patient immediately prior to the procedure. All medicine(s) and interventions are by my order.
--- NOTE | 2020-06-29 08:44 | Pre Anesthesia Assessment ---
Date of Service June 29, 2020 Pre Sedation Assessment Vital Signs Temp Pulse Pulse Resp BP BP Pulse Ox 06/29/20 07:26 104 H 18 144/89 H 97 06/29/20 06:39 98 06/29/20 06:11 36.0 C L 84 16 153/69 H 99 Cardiovascular RRR, no murmur, no edema Respiratory normal respiratory effort, lungs clear to auscultation Pre-Sedation Airway Assessment Smoking Status: Never smoker Mallampati Class: II ASA: ASA3 Procedure Planning Current Medications Reviewed: Yes Notes The planned sedation has been discussed with the patient. Informed Consent was obtained. I have identified the patient, determined the appropriateness of sedation and have assessed the patient immediately prior to the procedure. All medicine(s) and interventions are by my order.
--- NOTE | 2020-06-29 08:45 | Post Anesthesia Assessment ---
Date of Service June 29, 2020 Post Sedation Assessment Vital Signs Temp Pulse Pulse Resp BP BP Pulse Ox 06/29/20 07:26 104 H 18 144/89 H 97 06/29/20 06:39 98 06/29/20 06:11 36.0 C L 84 16 153/69 H 99 Recovery Score Activity: Moves 4 extremities Respiration: Deep Breath/Cough Circulation: +/-20% PreAnes Value Consciousness: Fully Awake Oxygen Saturation: > 92% On Room Air Discharge Sedation Level of Care: Phase I Post Sedation Plan On clinical assessment, the patient appears to have tolerated the sedation without complications. Patient is recovering as anticipated. Patient will continue to be monitored by nursing and may be discharged when sedation discharge criteria are met per below protocol. Upon Completions of procedure up to 15 minutes continue every 5 minute vital signs and the P.A.R. score; then discharge to a Phase I or Fast Track to Phase II per the following guidelines: * Discharge Patient to appropriate Phase II area if PAR is 8 or greater or return to pre- procedure baseline. The post - procedure orders will be as directed. * If PAR score is less than 8 or not return to pre-procedure baseline then patient will follow Phase I monitoring till PAR is reached for Phase II. The Phase I may be done in procedure room or may call to secure a Phase I area. * If naloxone or flumazenil are used for reversal, hold in Phase I for continued monitoring from when last reversal dose was given for a minimum of 60 minutes or longer pending the nurse and/or physician discretion of patient condition before discharge to Phase II. Please call the Sedation Physician to re-evaluate and complete post-note for discharge to Phase II area. Do NOT discharge from procedure sedation or Phase 1 until post- sedation evaluation note is complete by procedure /sedation MD Sedation Discharge Instructions to be given to the patient at discharge to home.
--- NOTE | 2020-06-29 08:54 | Cardiac Catheterization ---
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 Initial EKG revealed evidence of ST elevations in inferior leads with reciprocal depressions Cardiac catheterization revealed occluded proximal right coronary artery, PCI was performed with placement of 4 mm x 23 mm Xience drug-eluting stent postdilated with 4.5 mm NC balloon at nominal pressures. 0% residual with MAMADOU- 3 flow restored. Left coronary anatomy was visualized with nonselective views, no significant angiographic atherosclerosis noted. CAD Presenation: STEMI Coronary Anatomy Dominant: Right Left Main (% Stenosis): Ostial Diagnostic Physicians Name: Juan Singer MD Status: Emergency Closure Device Percutaneous Entry Location: Radial Closure Device: Radial Band Recommendations: Medical Therapy and/or Counseling and PCI without planned CABG Lesion Pre-Procedure MAMADOU Flow: 0 Previously Treated Lesion: No Lesion Complexity: Non-High/Non-C Thrombus Present: Yes Bifurcation Lesion: No Cardiac Cath Procedure Full Procedure Date June 29, 2020 Pre-Procedure Diagnosis Pre-Procedure Diagnosis: STEMI AUC Score AUC Score: 9 Post-Procedure Diagnosis Post-Procedure Diagnosis: Successful PCI Procedure(s) Performed Procedure(s) Performed: Coronary Angiography [employer] Helper Juan Singer MD Estimated Blood Loss Estimated Blood Loss: 15 Summary of Findings Proximal right coronary artery 100% occlusion, PCI performed with placement of 4 mm x 23 mm drug-eluting stent 0% residual with normal flow. Hemodynamics Rest Ao:: 126/71 Final Ao: 107/63 LV: 105/8 Recommendations Recommendations: Medical Therapy and/or Counseling and PCI without planned CABG Radiation Exposure (mGy) 1801 Contrast (mls) 115 I attest to the content of the Intraoperative Record and any orders documented therein. Any exceptions are noted below. PG Care Time/CCT Total # of Minutes Spent Total Time Spent with Patient: Total time spent is greater than 50% in coordination of care (as documented) at patient's floor/unit and/or counseling patient:
--- NOTE | 2020-06-29 09:40 | Critical Care Consultation ---
Date of Consultation June 29, 2020 Assessment & Plan (1) Acute [place], inferior wall: Reason Critically Ill: Nisha is a 70-year-old female with a notable history of HTN, HLD, T2DM, pulmonary embolism in 2010, and a lumpectomy on 06/28 who presented to [facility] on 06/29 for chest/shoulder pain radiating to the jaw, subsequently found to have evidence of inferior STEMI on ECG. She is now s/p PCI with placement of 1x MICHAEL in proximal RCA. Neuro - Sedation: none Analgesia: none - Fully alert and oriented. No FNDs on exam. Continue to monitor. Cardiac - #ACS - p/w STEMI, found to have occluded RCA on PCI --> placement of MICHAEL x 1 - Postop course notable for reperfusion bradycardia without hemodynamic compromise - resolved with atropine x 1 - Hemodynamically stable, feeling well - Continuous cardiac monitoring - ASA, Ticagrelor, Lopressor daily - When appropriate, resume home BP med - ARB-HCTZ - Discussed importance of statin - patient would like to hold from this - Order TTE - Lipid profile - Cardiology following Respiratory - - Not requiring supplemental oxygen, breathing comfortably on exam - Continuous pulse oximetry for now GI - - Heart healthy diet RENAL/LYTES - - Labs reviewed, renal function appearing stable - Replete K - - No concerns at this time - Monitor I+Os ENDO - - With notable history of non-insulin dependent T2DM - Ozempic weekly reported on home meds - ICU hyperglycemia protocol while here - Patient refusing insulin at present despite hyperglycemia - Continue to provide education while here HEME - - H&H stable - Monitor drive ID - - No concerns at present - MRSA swab INTEGUMENTARY - - No concerns at present LINES/IV ACCESS - PIVs intact. DVT PROPHYLAXIS - - SCDs Thank you for allowing us to be part of this patient's care. Please refer to Dr. Unger's documentation for any further recommendations. (2) Papilloma of breast: (3) Osteopenia: (4) Hypertension: (5) Hypercholesterolemia: (6) Diabetes mellitus type 2 in obese: (7) Arthritis: (8) Pulmonary embolism: Supervising Physician Co-Signing Physician Notes Dr. Moncada was the resident-physician during care of patient. I separately evaluated patient for torres portions of the history and the exam. I was present during the critical portion of medical decision making, and I discussed the case with the resident. I generally agree with the findings and plan except for any additions/exceptions noted. 70-year-old female status post PCI with a history of diabetes mellitus type 2 and hypertension. She is currently refusing subcutaneous insulin and statin therapy. She is hemodynamically stable. Continue dual antiplatelet therapy and beta-dimple. Echocardiogram ordered. Lipids are ordered for tomorrow morning. Hemoglobin A1c from May obtained at [facility] was elevated over 11. She is on Ozempic at home. She is stable for transfer to the floor. History of Present Illness Attending Physician: Dr. Cornel Cameron is a 70-year-old female with a notable history of HTN, HLD, T2DM, pulmonary embolism in 2010, and a lumpectomy on 06/28 who presented to [facility] on 06/29 for chest/shoulder pain radiating to the jaw, subsequently found to have evidence of inferior STEMI on ECG. She was urgently taken to the lab associate, where occlusion of the RCA was noted. 1x MICHAEL was placed in the RCA. Her immediate postoperative course was notable for reperfusion bradycardia- received atropine x 1 without further complication. Has remained hemodynamically stable since arriving to ICU. She reports feeling well. No pain. No shortness of breath. Endorses appetite. No weakness in arms/legs. No numbness or tingling. VSS. Mildly tachycardic. On room air. No davila. From a social perspective, her did just recently pass. Her children are primarily serving as points of contact. Allergies Allergy/AdvReac Type Severity Reaction Status Date / Time epinephrine Allergy Severe HIVES, Verified 06/20/20 13:29 TACHYCARDIA, PANIC ATTACK acetaminophen Allergy Unknown OVERSTIMULA Verified 06/20/20 13:29 TION albuterol Allergy Unknown TACHYCARDIA Verified 06/20/20 13:29 AND ITCHING benzonatate Allergy Unknown UNABLE TO Verified 06/20/20 13:29 SLEEP fexofenadine Allergy Unknown ITCHING Verified 06/20/20 13:29 AND UNABLE TO SLEEP iodine Allergy Unknown N/V Verified 06/20/20 13:29 lisinopril Allergy Unknown COUGHING Verified 06/20/20 13:29 loratadine Allergy Unknown DRY MOUTH Verified 06/20/20 13:29 metformin Allergy Unknown ABDOMINAL Verified 06/20/20 13:29 PAIN AND N/V naproxen Allergy Unknown DIZZINESS Verified 06/20/20 13:29 oxycodone Allergy Unknown OVERSTIMULA Verified 06/20/20 13:29 TION Penicillins Allergy Unknown RASH Verified 06/20/20 13:29 pirbuterol Allergy Unknown TACHYCARDIA Verified 06/20/20 13:29 AND ITCHING povidone-iodine Allergy Unknown BLISTERS Verified 06/20/20 13:29 AND RASH propoxyphene Allergy Unknown OVERSTIMULA Verified 06/20/20 13:29 TION Mwnblak-Jfq-Zry Reductase Allergy Unknown RASH Verified 06/20/20 13:29 Inhibitor procaine AdvReac Unknown HYPERSENSIT Verified 06/20/20 13:29 IVITY shrimp AdvReac Unknown SEAFOOD--N/ Verified 06/20/20 13:29 V BETADINE Allergy Intermediate Swelling Uncoded 06/20/20 13:29 TRACE METALS Allergy Unknown SKIN Uncoded 06/20/20 13:29 IRRITATION Home Medications Medication Instructions Recorded Confirmed Type aspirin 81 mg tablet,delayed 81 mg PO HS 06/18/20 06/20/20 History release cetirizine 10 mg tablet 10 mg PO HS 06/18/20 06/20/20 History fluticasone propionate 50 1 spray INTRANASAL HS 06/18/20 06/20/20 History mcg/actuation nasal spray,suspension ibuprofen 200 mg tablet 200 mg PO Q8H PRN 06/18/20 06/20/20 History irbesartan 150 1 tab PO QAM 06/18/20 06/20/20 History mg-hydrochlorothiazide 12.5 mg tablet montelukast 10 mg tablet 10 mg PO HS 06/18/20 06/20/20 History multivitamin 1 tab PO QAM 06/18/20 06/20/20 History Atrovent HFA 1 puff INHALATION QID PRN 06/20/20 06/20/20 History Ozempic 0.25 mg SUBCUT WK 06/20/20 06/20/20 History Patient History Medical History Anxiety Asthma rare use of PRN inh Depression DM type 2 (diabetes mellitus, type 2) History of kidney stones History of pulmonary embolism 2010 - was on Evista at the time - treated w/ AC therapy x 6 mo HLD (hyperlipidemia) HTN (hypertension) Migraines Osteoarthritis Surgical History H/O breast surgery Excision of Left breast papilloma 2017 Dr. Feliciano H/O: hysterectomy History of arthroscopic knee surgery History of colonoscopy History of D&C History of esophagogastroduodenoscopy (EGD) History of laparoscopic cholecystectomy History of lithotripsy History of tonsillectomy and adenoidectomy Family History Father Heart disease Cancer Mother Hypertension Sister Cancer Grandmother (Maternal) Hypertension Grandmother (Paternal) Diabetes Other No family history of adverse response to anesthesia Social History Smoking Status: Former smoker Second Hand Exposure: Yes (hx); Hx Alcohol Use: Yes Alcohol type: wine Hx Substance Use: No Preferred Language: Monegasque Communication Ability: Effective 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 She is freely conversive and in NAD. Neck: Neck veins flat, no evidence of JVD Respiratory: Good respiratory effort with symmetric expansion of the chest. Lungs CTAB without crackles or wheezes Cardiovascular: NRRR. S1 and S2 present without murmurs, rubs, or gallops Gastrointestinal (Abdomen): NABS. Abdomen is soft, nontender, nondistended to palpation Musculoskeletal: 1+ pitting edema in the lower extremities bilaterally Results & Data Results & Data ([facility]) Vital Signs (Past 12 Hours) Vital Signs Temp Pulse Pulse Resp BP BP Pulse Ox 06/29/20 09:07 36.5 C 99 H 17 119/72 99 06/29/20 07:26 104 H 18 144/89 H 97 06/29/20 06:39 98 06/29/20 06:11 36.0 C L 84 16 153/69 H 99 Resident Activity Tracking Resident Involvement: Resident Care Provided Care Provided: Adult [facility] Medicine
[2020-06-29] MEDS ORDERED: POTASSIUM CHLORIDE CRTAB 20 MEQ TABCR PO ONE (12:00)
--- NOTE | 2020-06-29 14:01 | Billing Data ---
Date of Service June 29, 2020 Coding Level of Care Code 20923 Initial Inpt Care Lvl 3
[2020-06-29] MEDS ORDERED: ACETAMINOPHEN 500 MG TAB PO ONE (16:09)
--- NOTE | 2020-06-29 16:31 | XCELERA ---
[id number]
[2020-06-29] MEDS ORDERED: PHARMACY GLYCEMIC MGMT CONSULT PRN (16:34)
[2020-06-29] MEDS ORDERED: GLUCAGON FOR INJ 1 MG VIAL IM PRN (16:45)
[2020-06-29] MEDS ORDERED: DEXTROSE 50% 50 ML SYRINGE IV PRN (16:45)
[2020-06-29] MEDS ORDERED: CARBOHYDRATES FOR HYPOGLYCEMIA PO PRN (16:45)
[2020-06-29] MEDS ORDERED: GLUCOSE 10 TABS/TUBE PO PRN (16:45)
[2020-06-29] MEDS ORDERED: GLUCOSE 40% GEL 15 GM TUBE PO PRN (16:45)
[2020-06-29] MEDS: INSULIN ASPART 100 UNITS/ML 3 ML PEN SC SCH ×2 (16:59→21:12)
[2020-06-29] MEDS ORDERED: INSULIN GLARGINE SOLOSTAR 100 UNITS/ML 3 ML PEN SC ONE (17:00)
--- NOTE | 2020-06-29 17:24 | Pharmacy Report ---
Pharmacy Glycemic Short Note 2 - Date of Service June 29, 2020 - Glycemic Short BSG Results (Last 24 hours): 06/29/20 06/29/20 06/29/20 07:00 09:07 12:26 Glucose 244 H POC Glucose 224 H 276 H 06/29/20 16:25 Glucose POC Glucose 379 H* OUTPATIENT ANTIDIABETIC REGIMEN: * Ozempic 0.25 mg SC weekly (recently started in April of this year) * HbA1c: 11.8% (May 2020) - per patient * Patient reported allergy/adverse reaction to metformin (abdominal pain, nausea, and vomiting) ASSESSMENT: * DM is a 70 year old female POD #1 s/p lumpectomy who subsequently presented to ED with chest/shoulder pain and was diagnosed with acute STEMI - underwent PCI today * BSGs significantly elevated today at 224, 276, and 379 mg/dL * Pharmacy consulted for glycemic management with BSG of 379 mg/dL * Per RN, patient was refusing insulin prior to glycemic consult * Per patient interview, she is adamant about not taking insulin as an outpatient, but agreeable to short-term conservative insulin regimen while inpatient * Anticipate that this will be insufficient to control BSGs, but it is better than no treatment * Reports that fasting BSGs are typically in the 170s since starting Ozempic (200s prior to that) * Would likely benefit from education/counseling from certified professional coder prior to discharge * K+: 3.3 mmoL/L this morning + recent cardiac event and patient apprehension to insulin - will use SC for now PLAN FOR INPATIENT GLYCEMIC CONTROL: * Hold Ozempic * Basal insulin * Lantus 20 units SQ x 1 now (~0.2 unit/kg) * Bolus insulin * NovoLog per scale ACHS or Q6hrs while NPO * Goal Range: Low 110 mg/dL - High 150 mg/dL * Correction Factor: 35 mg/dL/unit * Nutritional / Prandial insulin per carb ratio of 1 unit per 12 grams CHO consumed PLAN FOR DISCHARGE: * tbd
--- NOTE | 2020-06-29 18:43 | Electrocardiogram Report ---
Test Reason : Blood Pressure : / mmHG Vent. Rate : 087 BPM Atrial Rate : 087 BPM P-R Int : 190 ms QRS Dur : 110 ms QT Int : 368 ms P-R-T Axes : 036 066 031 degrees QTc Int : 442 ms Normal sinus rhythm Inferior injury ACUTE HI / STEMI Consider right ventricular involvement in acute inferior infarct Abnormal ECG When compared with ECG of 24-JUN-2020 09:27, Questionable change in QRS duration Confirmed by Humberto Erwin ([id number]) on 06/29/2020 6:42:54 PM Referred By: REFERRED SELF Confirmed By:Dylan Erwin
--- NOTE | 2020-06-29 18:43 | Electrocardiogram Report ---
Test Reason : Blood Pressure : / mmHG Vent. Rate : 074 BPM Atrial Rate : 074 BPM P-R Int : 196 ms QRS Dur : 104 ms QT Int : 378 ms P-R-T Axes : 035 063 -20 degrees QTc Int : 419 ms Normal sinus rhythm ST elevation consider inferior injury or acute infarct ACUTE NE / STEMI Consider right ventricular involvement in acute inferior infarct Abnormal ECG When compared with ECG of 29-JUN-2020 06:45, (unconfirmed) ST no longer depressed in Anterior leads T wave inversion now evident in Anterolateral leads Confirmed by Humberto Erwin ([id number]) on 06/29/2020 6:43:07 PM Referred By: REFERRED SELF Confirmed By:Dylan Erwin
--- NOTE | 2020-06-29 18:45 | Electrocardiogram Report ---
Test Reason : Blood Pressure : / mmHG Vent. Rate : 092 BPM Atrial Rate : 092 BPM P-R Int : 194 ms QRS Dur : 096 ms QT Int : 360 ms P-R-T Axes : 034 020 -36 degrees QTc Int : 445 ms Normal sinus rhythm ST elevation consider inferior injury or acute infarct ACUTE SC / STEMI Consider right ventricular involvement in acute inferior infarct Abnormal ECG When compared with ECG of 29-JUN-2020 07:07, (unconfirmed) No significant change was found Confirmed by Humberto Erwin ([id number]) on 06/29/2020 6:45:30 PM Referred By: REFERRED SELF Confirmed By:Dylan Erwin
--- NOTE | 2020-06-29 19:29 | History & Physical Report ---
Date of Service June 29, 2020 Assessment & Plan (1) Acute [place], inferior wall: She appears to be doing well following her percutaneous intervention. No evidence of heart failure on examination. No significant arrhythmias. No recurrent chest pain or jaw pain. She has been started on dual anti-platelet therapy with aspirin and Brilinta. She will receive a dose of metoprolol this evening. We will restart her irbesartan in the morning. Ideally she would be on high-dose atorvastatin but she apparently had a unusual photosensitivity with prior statin use. She is requesting an alternative for reducing lipids. (2) Hypertension: Will start metoprolol tonight and restart her restart in the morning. We will consider restarting hydrochlorothiazide as well. (3) Hypercholesterolemia: Will use Zetia at 1st. She would likely be best served by rechallenge with statin therapy. Alternatively a PSK9 inhibitor Admission and Anticipated Discharge Date Admission Date: June 29, 2020 History of Present Illness Chief Complaint: Chest pain Primary Care Provider: Virgilio Giles MD The patient is a 70-year-old woman without a known history of cardiac disease who does suffer from occasional asthma attacks the patient's symptoms of asthma tend to be worse in the spring and attributes this to some allergies. Early this morning the patient awoke from sleep with some symptoms of chest pressure. She attributed this to an asthma exacerbation and took an albuterol inhaler. Her symptoms are fairly mild at that time. She drove her daughter to work around 6:00 a.m. and due to the persistent nature of her symptoms as well as the development of back arm and jaw discomfort sought attention at the emergency room. She was diagnosed with an acute inferior infarct in taken emergently to the catheterization suite where she underwent percutaneous intervention to the right coronary artery. During the procedure she had some transient bradycardia which responded to atropine. Otherwise, no significant complication. The patient states she is an active individual who is accustomed to routine activity. She has some difficulties with asthma as noted above but has not had symptoms of jaw or back discomfort previously. Currently she claims to be feeling well she has not had any recurrence of her index symptoms. She has had some mild discomfort in the left shoulder area which was worse with her echocardiogram. She attributes this to musculoskeletal pain. Allergies Allergy/AdvReac Type Severity Reaction Status Date / Time epinephrine Allergy Severe HIVES, Verified 06/20/20 13:29 TACHYCARDIA, PANIC ATTACK acetaminophen Allergy Unknown OVERSTIMULA Verified 06/20/20 13:29 TION albuterol Allergy Unknown TACHYCARDIA Verified 06/20/20 13:29 AND ITCHING benzonatate Allergy Unknown UNABLE TO Verified 06/20/20 13:29 SLEEP fexofenadine Allergy Unknown ITCHING Verified 06/20/20 13:29 AND UNABLE TO SLEEP iodine Allergy Unknown N/V Verified 06/20/20 13:29 lisinopril Allergy Unknown COUGHING Verified 06/20/20 13:29 loratadine Allergy Unknown DRY MOUTH Verified 06/20/20 13:29 metformin Allergy Unknown ABDOMINAL Verified 06/20/20 13:29 PAIN AND N/V naproxen Allergy Unknown DIZZINESS Verified 06/20/20 13:29 oxycodone Allergy Unknown OVERSTIMULA Verified 06/20/20 13:29 TION Penicillins Allergy Unknown RASH Verified 06/20/20 13:29 pirbuterol Allergy Unknown TACHYCARDIA Verified 06/20/20 13:29 AND ITCHING povidone-iodine Allergy Unknown BLISTERS Verified 06/20/20 13:29 AND RASH propoxyphene Allergy Unknown OVERSTIMULA Verified 06/20/20 13:29 TION Lgkfnom-Ohe-Jjb Reductase Allergy Unknown RASH Verified 06/20/20 13:29 Inhibitor procaine AdvReac Unknown HYPERSENSIT Verified 06/20/20 13:29 IVITY shrimp AdvReac Unknown SEAFOOD--N/ Verified 06/20/20 13:29 V BETADINE Allergy Intermediate Swelling Uncoded 06/20/20 13:29 TRACE METALS Allergy Unknown SKIN Uncoded 06/20/20 13:29 IRRITATION Home Medications Medication Instructions Recorded Confirmed Type aspirin 81 mg tablet,delayed 81 mg PO HS 06/18/20 06/20/20 History release cetirizine 10 mg tablet 10 mg PO HS 06/18/20 06/20/20 History fluticasone propionate 50 1 spray INTRANASAL HS 06/18/20 06/20/20 History mcg/actuation nasal spray,suspension ibuprofen 200 mg tablet 200 mg PO Q8H PRN 06/18/20 06/20/20 History irbesartan 150 1 tab PO QAM 06/18/20 06/20/20 History mg-hydrochlorothiazide 12.5 mg tablet montelukast 10 mg tablet 10 mg PO HS 06/18/20 06/20/20 History multivitamin 1 tab PO QAM 06/18/20 06/20/20 History Atrovent HFA 1 puff INHALATION QID PRN 06/20/20 06/20/20 History Ozempic 0.25 mg SUBCUT WK 06/20/20 06/20/20 History Past Med/Surg History Medical History Anxiety Asthma rare use of PRN inh Depression DM type 2 (diabetes mellitus, type 2) History of kidney stones History of pulmonary embolism 2010 - was on Evista at the time - treated w/ AC therapy x 6 mo HLD (hyperlipidemia) HTN (hypertension) Migraines Osteoarthritis Surgical History H/O breast surgery Excision of Left breast papilloma 2016 Dr. Feliciano H/O: hysterectomy History of arthroscopic knee surgery History of colonoscopy History of D&C History of esophagogastroduodenoscopy (EGD) History of laparoscopic cholecystectomy History of lithotripsy History of tonsillectomy and adenoidectomy Family History Father Heart disease Cancer Mother Hypertension Sister Cancer Grandmother (Maternal) Hypertension Grandmother (Paternal) Diabetes Other No family history of adverse response to anesthesia Social History Smoking Status: Former smoker Second Hand Exposure: Yes (hx); Hx Alcohol Use: Yes Alcohol type: wine Hx Substance Use: No Preferred Language: Chinese Communication Ability: Effective Mold Maintenance Technician Required: No Beliefs That Will Affect Care: None marital status: / Current Living Situation: Family Current Living Situation Comment: dtr lives with pt 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 Mood affect appear normal. She answered all questions appropriately. HEENT: Sclerae are anicteric. Pupils are equal and reactive to light and accommodation. Extraocular movements were intact. Neuro: Cranial nerves intact Neck: Examination of the submandibular region did not reveal any significant lymphadenopathy. Carotids are palpable bilaterally and free of bruits on auscultation. There was no evidence of jugular venous distention. The thyroid was not enlarged. Lungs: Lungs are clear to auscultation bilaterally. There are no rales wheezes or rhonchi. She has normal respiratory effort without use of accessory muscles. There is normal pulmonary excursion. Cardiac: The rhythm was regular. S1 and S2 were normal. There are no murmurs on examination. The PMI was not markedly displaced on palpation. Abdomen: The abdomen was soft and nontender. Extremities: Patient has bilateral radial pulses that are equal in intensity. Palpable right radial pulse. Good perfusion of the right hand. There is no evidence cyanosis or clubbing. There was no evidence of significant peripheral edema bilaterally. Skin: There are no rashes noted on examination today. Results & Data Results [facility]) Vital Signs (Past 12 Hours) Vital Signs Temp Pulse Pulse Resp BP BP Pulse Ox 06/29/20 18:00 36.8 C 111 H 20 143/77 H 98 06/29/20 17:00 108 H 132/74 98 06/29/20 16:00 90 115/85 96 06/29/20 15:00 85 99 06/29/20 14:00 89 129/69 94 06/29/20 13:00 98 H 129/64 97 06/29/20 12:30 89 06/29/20 12:15 89 06/29/20 12:00 89 132/57 L 97 06/29/20 11:00 103 H 151/70 H 99 06/29/20 10:37 85 140/74 99 06/29/20 10:01 95 H 123/72 96 06/29/20 09:58 101 H 06/29/20 09:45 93 H 18 127/76 97 06/29/20 09:30 85 95 H 19 134/83 96 06/29/20 09:15 102 H 20 136/68 100 06/29/20 09:11 100 H 119/72 100 06/29/20 09:07 36.5 C 99 H 17 119/72 99 06/29/20 07:26 104 H 18 144/89 H 97 Laboratory Results Abnormal Lab Results 06/29/20 06/29/2021 07:00 07:00 07:00 WBC 8.01 RBC 4.28 Hgb 13.0 Hct 37.1 MCV 86.7 MCH 30.4 MCHC 35.0 RDW Std Deviation 38.7 RDW Coeff of Manoj 12.2 Plt Count 282 MPV 10.7 H Immature Gran % (Auto) 0.4 Neut % (Auto) 68.1 Lymph % (Auto) 23.3 [place] % (Auto) 5.7 Eos % (Auto) 2.0 Baso % (Auto) 0.5 Neut # (Auto) 5.45 Lymph # (Auto) 1.87 [place] # (Auto) 0.46 Eos # (Auto) 0.16 Baso # (Auto) 0.04 Immature Gran # (Auto) 0.03 H D-Dimer 580 H* Sodium 137 Potassium 3.3 L Chloride 104 Carbon Dioxide 27 Anion Gap 7.0 BUN 17 Creatinine 1.01 Est Cr Clr Drug Dosing 57.8 Est GFR ( Amer) 64.9 Est GFR (Non-Af Amer) 56.0 BUN/Creatinine Ratio 17.1 Glucose 244 H POC Glucose Calcium 9.9 Total Bilirubin 0.7 AST 18 ALT 26 Alkaline Phosphatase 114 Troponin I 0.309 H* Total Protein 7.5 Albumin 3.7 Globulin 3.8 Albumin/Globulin Ratio 1.0 Lipase 129 Nasal Screen MRSA (PCR) COVID-19 Eval Order SARS-CoV-2 (PCR) Influenza Type A (PCR) Influenza Type B (PCR) RSV (RT-PCR) 06/29/20 06/29/20 06/29/20 07:10 07:10 09:07 WBC RBC Hgb Hct MCV MCH MCHC RDW Std Deviation RDW Coeff of Manoj Plt Count MPV Immature Gran % (Auto) Neut % (Auto) Lymph % (Auto) [place] % (Auto) Eos % (Auto) Baso % (Auto) Neut # (Auto) Lymph # (Auto) [place] # (Auto) Eos # (Auto) Baso # (Auto) Immature Gran # (Auto) D-Dimer Sodium Potassium Chloride Carbon Dioxide Anion Gap BUN Creatinine Est Cr Clr Drug Dosing Est GFR ( Amer) Est GFR (Non-Af Amer) BUN/Creatinine Ratio Glucose POC Glucose 224 H Calcium Total Bilirubin AST ALT Alkaline Phosphatase Troponin I Total Protein Albumin Globulin Albumin/Globulin Ratio Lipase Nasal Screen MRSA (PCR) COVID-19 Eval Order CovFluRsv at [facility] SARS-CoV-2 (PCR) NEGATIVE Influenza Type A (PCR) Negative Influenza Type B (PCR) Negative RSV (RT-PCR) Negative 06/29/20 06/29/20 06/29/20 09:15 12:26 16:25 WBC RBC Hgb Hct MCV MCH MCHC RDW Std Deviation RDW Coeff of Manoj Plt Count MPV Immature Gran % (Auto) Neut % (Auto) Lymph % (Auto) [place] % (Auto) Eos % (Auto) Baso % (Auto) Neut # (Auto) Lymph # (Auto) [place] # (Auto) Eos # (Auto) Baso # (Auto) Immature Gran # (Auto) D-Dimer Sodium Potassium Chloride Carbon Dioxide Anion Gap BUN Creatinine Est Cr Clr Drug Dosing Est GFR ( Amer) Est GFR (Non-Af Amer) BUN/Creatinine Ratio Glucose POC Glucose 276 H 379 H* Calcium Total Bilirubin AST ALT Alkaline Phosphatase Troponin I Total Protein Albumin Globulin Albumin/Globulin Ratio Lipase Nasal Screen MRSA (PCR) Negative COVID-19 Eval Order SARS-CoV-2 (PCR) Influenza Type A (PCR) Influenza Type B (PCR) RSV (RT-PCR) Diagnostic Findings Echocardiogram performed today revealed mild to moderately reduced LV systolic function with regional wall motion abnormality involving the inferior mclain. X-ray obtained at the time admission not reveal any acute cardiopulmonary process. PG Care Time/CCT Total # of Minutes Spent Total Time Spent with Patient: Total time spent is greater than 50% in coordination of care (as documented) at patient's floor/unit and/or counseling patient: Coding Level of Care Code 44868 Initial Inpt Care Lvl 3 Diagnoses Acute IA, inferior wall I21.19 Hypertension I10 Hypercholesterolemia E78.00
[2020-06-29] MEDS: TICAGRELOR 90 MG TAB PO SCH (20:35)
[2020-06-29] MEDS: METOPROLOL TARTRATE 25 MG TAB PO SCH (21:11)
--- NOTE | 2020-06-29 22:16 | Hospitalist Consultation ---
Date of Consultation June 29, 2020 Assessment & Plan (1) Acute NM, inferior wall: as per primary team. continue ticagrelor and asa. On exetimbe due to intolerance to statins (2) Hx of migraines: Appears controlled at this time (3) Hypertension: B/P at goal will cont. BB and ARB (4) Hypercholesterolemia: (5) Diabetes mellitus type 2 in obese: ordered A1C. Pending. consulted glycemic control consulte History of Present Illness Reason for Consultation: Blood sugar control Attending Physician: Juan Singer MD History of Present Illness 70 yo female reports feeling well. She is here presenting with chest pain and was diagnosed with a STEMI. She was urgently [place] [facility], where occlusion of the RCA was noted. 1x MICHAEL was placed in the RCA. Since then she has been stable and doing well. She has no new complaints Allergies Allergy/AdvReac Type Severity Reaction Status Date / Time epinephrine Allergy Severe HIVES, Verified 06/20/20 13:29 TACHYCARDIA, PANIC ATTACK acetaminophen Allergy Unknown OVERSTIMULA Verified 06/20/20 13:29 TION albuterol Allergy Unknown TACHYCARDIA Verified 06/20/20 13:29 AND ITCHING benzonatate Allergy Unknown UNABLE TO Verified 06/20/20 13:29 SLEEP fexofenadine Allergy Unknown ITCHING Verified 06/20/20 13:29 AND UNABLE TO SLEEP iodine Allergy Unknown N/V Verified 06/20/20 13:29 lisinopril Allergy Unknown COUGHING Verified 06/20/20 13:29 loratadine Allergy Unknown DRY MOUTH Verified 06/20/20 13:29 metformin Allergy Unknown ABDOMINAL Verified 06/20/20 13:29 PAIN AND N/V naproxen Allergy Unknown DIZZINESS Verified 06/20/20 13:29 oxycodone Allergy Unknown OVERSTIMULA Verified 06/20/20 13:29 TION Penicillins Allergy Unknown RASH Verified 06/20/20 13:29 pirbuterol Allergy Unknown TACHYCARDIA Verified 06/20/20 13:29 AND ITCHING povidone-iodine Allergy Unknown BLISTERS Verified 06/20/20 13:29 AND RASH propoxyphene Allergy Unknown OVERSTIMULA Verified 06/20/20 13:29 TION Vmdvhik-Rnu-[facility] Reductase Allergy Unknown RASH Verified 06/20/20 13:29 Inhibitor procaine AdvReac Unknown HYPERSENSIT Verified 06/20/20 13:29 IVITY shrimp AdvReac Unknown SEAFOOD--N/ Verified 06/20/20 13:29 V BETADINE Allergy Intermediate Swelling Uncoded 06/20/20 13:29 TRACE METALS Allergy Unknown SKIN Uncoded 06/20/20 13:29 IRRITATION Home Medications Medication Instructions Recorded Confirmed Type aspirin 81 mg tablet,delayed 81 mg PO HS 06/18/20 06/20/20 History release cetirizine 10 mg tablet 10 mg PO HS 06/18/20 06/20/20 History fluticasone propionate 50 1 spray INTRANASAL HS 06/18/20 06/20/20 History mcg/actuation nasal spray,suspension ibuprofen 200 mg tablet 200 mg PO Q8H PRN 06/18/20 06/20/20 History irbesartan 150 1 tab PO QAM 06/18/20 06/20/20 History mg-hydrochlorothiazide 12.5 mg tablet montelukast 10 mg tablet 10 mg PO HS 06/18/20 06/20/20 History multivitamin 1 tab PO QAM 06/18/20 06/20/20 History Atrovent HFA 1 puff INHALATION QID PRN 06/20/20 06/20/20 History Ozempic 0.25 mg SUBCUT WK 06/20/20 06/20/20 History Patient History Medical History Anxiety Asthma rare use of PRN inh Depression DM type 2 (diabetes mellitus, type 2) History of kidney stones History of pulmonary embolism 2010 - was on Evista at the time - treated w/ AC therapy x 6 mo HLD (hyperlipidemia) HTN (hypertension) Migraines Osteoarthritis Surgical History H/O breast surgery Excision of Left breast papilloma 2016 Dr. Feliciano H/O: hysterectomy History of arthroscopic knee surgery History of colonoscopy History of D&C History of esophagogastroduodenoscopy (EGD) History of laparoscopic cholecystectomy History of lithotripsy History of tonsillectomy and adenoidectomy Family History Father Heart disease Cancer Mother Hypertension Sister Cancer Grandmother (Maternal) Hypertension Grandmother (Paternal) Diabetes Other No family history of adverse response to anesthesia Social History Smoking Status: Former smoker Second Hand Exposure: Yes (hx); Hx Alcohol Use: Yes Alcohol type: wine Hx Substance Use: No Preferred Language: Chinese Communication Ability: Effective Professor Of Spanish Required: No Beliefs That Will Affect Care: None marital status: / Current Living Situation: Family Current Living Situation Comment: dtr lives with pt current occupational status: employed 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 Other Information That Helps Us Care for You: No Feels Safe at Home: Yes Safety Concerns: Feels Safe At This Time Assistive Devices: None Review of Systems Constitutional: no sweats and no malaise Eyes: no diplopia Ear, Nose, Mouth, Throat: no ear pain Respiratory: no cough and no change in sputum Cardiovascular: + chest pain (prior to stent) Gastrointestinal: no bloating and no nausea Genitourinary: no urinary frequency Musculoskeletal: no deformity Integumentary: no rash Psychiatric: no hopelessness Endocrine: no polydipsia Hematologic / Lymphatic: no coagulopathy Physical Exam Constitutional: WD/WN, vitals as above Eyes: PERRL, conjunctivae normal, anicteric sclerae ENMT: external ear and nose normal, oropharynx normal Neck: trachea midline, no thyromegaly Respiratory: normal respiratory effort, lungs clear to auscultation Cardiovascular: RRR, no murmur, no edema Gastrointestinal (Abdomen): normal bowel sounds, soft, nontender, no hepatosplenomegaly Musculoskeletal: no cyanosis or clubbing, extremities motor strength 5/5 Skin: no rashes, warm and dry Neurologic: PERRL, EOMI, accommodation nl, no face palsy, no dysarthria Psychiatric: A+Ox3, euthymic affect Results & Data Results & Data ([facility]) Vital Signs (Past 12 Hours) Vital Signs Temp Pulse Pulse Resp BP BP Pulse Ox 06/29/20 20:41 36.6 C 84 18 130/73 99 06/29/20 19:47 90 06/29/20 18:00 36.8 C 111 H 20 143/77 H 98 06/29/20 17:00 108 H 132/74 98 06/29/20 16:00 90 115/85 96 06/29/20 15:00 85 99 06/29/20 14:00 89 129/69 94 06/29/20 13:00 98 H 129/64 97 06/29/20 12:30 89 06/29/20 12:15 89 06/29/20 12:00 89 132/57 L 97 06/29/20 11:00 103 H 151/70 H 99 06/29/20 10:37 85 140/74 99 PG Care Time/CCT Total # of Minutes Spent Total Time Spent with Patient: Total time spent is greater than 50% in coordination of care (as documented) at patient's floor/unit and/or counseling patient: Coding Level of Care Code 78602 Inpt Consult Level 3 Diagnoses Acute NM, inferior wall I21.19 Hx of migraines Z86.69 Hypertension I10 Hypercholesterolemia E78.00 Diabetes mellitus type 2 in obese E11.69; E66.9
[2020-06-30 07:21] LABS: BUN Creatinine Ratio 22.2 (10-20); Calcium 9.5 mg/dl (8.5-10.1); Creatinine Clr Calc Pharmacy 47.9 ml/min; Est GFR (African American) 51.6; Est GFR (Non-African American) 44.5; Potassium 3.9 mmol/L (3.5-5.1)
[2020-06-30 07:23] LABS: Troponin I 19.3 ng/ml (0-0.045)
[2020-06-30] MEDS: INSULIN ASPART 100 UNITS/ML 3 ML PEN SC SCH ×4 (08:23→20:47)
[2020-06-30] MEDS: IRBESARTAN 150 MG TAB PO SCH (08:24)
[2020-06-30] MEDS: TICAGRELOR 90 MG TAB PO SCH ×2 (08:25→21:19)
[2020-06-30] MEDS: ASPIRIN 81 MG ECTAB PO SCH (08:25)
[2020-06-30] MEDS: METOPROLOL TARTRATE 25 MG TAB PO SCH ×2 (08:27→21:19)
[2020-06-30] MEDS ORDERED: INSULIN GLARGINE SOLOSTAR 100 UNITS/ML 3 ML PEN SC SCH (09:00)
--- NOTE | 2020-06-30 09:43 | Pharmacy Report ---
Pharmacy Glycemic Short Note 2 - Date of Service June 30, 2020 - Glycemic Short BSG Results (Last 24 hours): 06/29/20 06/29/20 06/29/20 12:26 16:25 21:09 Glucose POC Glucose 276 H 379 H* 299 H 06/30/20 06/30/20 06:26 07:06 Glucose 251 H POC Glucose 296 H OUTPATIENT ANTIDIABETIC REGIMEN: * Ozempic 0.25 mg SC weekly (recently started in April of this year) * HbA1c: 11.8% (May 2020) - per patient * Patient reported allergy/adverse reaction to metformin (abdominal pain, nausea, and vomiting) ASSESSMENT: 06/30/20 * Pt has received 38 units of insulin over the past 24hrs * 20 units of basal with Lantus * 18 units of bolus with NovoLog * Pharmacy dosed insulin conservatively on admission since patient was very resistant to any insulin administration. * BSGs still remain all above 250mg/dl therefore will increase insulin regimen. * Will try to keep basal insulin once daily (as opposed to BID) to prep for DC. Once daily administration may increase compliance/adherence. 06/29/20 * DM is a 70 year old female POD #1 s/p lumpectomy who subsequently presented to ED with chest/shoulder pain and was diagnosed with acute STEMI - underwent PCI today * BSGs significantly elevated today at 224, 276, and 379 mg/dL * Pharmacy consulted for glycemic management with BSG of 379 mg/dL * Per RN, patient was refusing insulin prior to glycemic consult * Per patient interview, she is adamant about not taking insulin as an outpatient, but agreeable to short-term conservative insulin regimen while inpatient * Anticipate that this will be insufficient to control BSGs, but it is better than no treatment * Reports that fasting BSGs are typically in the 170s since starting Ozempic (200s prior to that) * Would likely benefit from education/counseling from certified juvenile probation officer prior to discharge * K+: 3.3 mmoL/L this morning + recent cardiac event and patient apprehension to insulin - will use SC for now PLAN FOR INPATIENT GLYCEMIC CONTROL: * Basal insulin * Lantus 20 units SQ x 1 now (~0.2 unit/kg) in addition to 20 units given last night * Start Lantus 40 units SQ daily in AM 07/01/20 * Bolus insulin: tighten * NovoLog per scale ACHS or Q6hrs while NPO. Add 0000 & 0400 accuchecks/coverage since lantus from last evening will wear off before next dose due tomorrow. * Goal Range: Low 110 mg/dL - High 150 mg/dL * Correction Factor: 25 mg/dL/unit * Nutritional / Prandial insulin per carb ratio of 1 unit per 7 grams CHO consumed PLAN FOR DISCHARGE: * A1c = 11.8% on 05/22/20 * Goal A1c < 7% based on age/co-morbidities. * A1c is greater than or equal to 10% --> consider triple therapy with metformin + basal insulin + (GLP1-RA OR prandial insulin). May need to cont inue additional antidiabetic agent based on patient specific factors (efficacy, hypo risk, weight gain/loss, side effects, cost) * Unsure if patient has tried/failed metformin in the past. Will confirm with patient. * Metformin XR 500mg PO daily with evening meal. Typically the XR formulation of metformin is better tolerated than the immediate release formulation. Continue to titrate metformin dosing upwards as recommended. Dosage increases should be made in increments of 500 mg weekly, up to 2,000 mg/day PO, given in divided doses. Doses above 2000 mg/day may be better tolerated if divided and given 3 times per day with meals. Max: 2,550 mg/day PO, in divided doses * Basal insulin: Recommend Glargine 40 units SQ daily (dosing may change based on inpatient needs) * Continue Ozempic. Since patient started this in April (4+ weeks ago) may increase dose to 0.5 mg SQ weekly.
--- NOTE | 2020-06-30 12:48 | Cardiology Progress Note ---
Date of Service June 30, 2020 Assessment & Plan (1) Acute SD, inferior wall: She appears to be doing well following her percutaneous intervention. No recurrence of her presenting symptoms. No evidence of heart failure or pulmonary edema. Only 1 brief episode of ventricular ectopy overnight. Will continue to monitor on her new medications. Will continue irbesartan, metoprolol, dual anti-platelet therapy and Zetia. (2) Hypertension: Blood pressure slightly low earlier this morning. Very possible that some of her symptoms are also related to a relatively lower blood sugar. I think we will continue the current medical regimen and monitor her symptoms and blood pressure. (3) Hypercholesterolemia: Will use Zetia at . She would likely be best served by rechallenge with statin therapy. Alternatively a PSK9 inhibitor (4) Diabetes mellitus type 2 in obese: Blood sugars continue to be high. I have asked the Medicine Service to evaluate her for recommendations regarding her hyperglycemia. Admission and Anticipated Discharge Date Admission Date: June 29, 2020 Subjective At the time of my interview this afternoon the patient claims to be feeling well. However, earlier today she had some symptoms that involved a mild visual disturbance and was generally not feeling well. At that time she seem to have relatively low blood pressures and had recently been treated for an elevated blood sugar. She has not had recurrence of her index or presenting symptoms. No breathing difficulty currently. Some ambulation yesterday evening and today without dizziness or lightheadedness. Review of Systems Review of Systems: Some flushing of the face. Physical Exam Physical Exam: She is alert and oriented x3. Mood affect appear normal. She answered all questions appropriately. HEENT: Sclerae are anicteric. Pupils are equal and reactive to light and accommodation. Extraocular movements were intact. Neuro: Cranial nerves intact Lungs: Lungs are clear to auscultation bilaterally. There are no rales wheezes or rhonchi. She has normal respiratory effort without use of accessory muscles. There is normal pulmonary excursion. Cardiac: The rhythm was regular. S1 and S2 were normal. There are no murmurs on examination. The PMI was not markedly displaced on palpation. Extremities: Patient has bilateral radial pulses that are equal in intensity. There is no evidence cyanosis or clubbing. There was no evidence of significant peripheral edema bilaterally. Skin: There are no rashes noted on examination today. Some flushing of the cheeks. Results & Data ([facility]) Vital Signs (Past 12 Hours) Vital Signs Temp Pulse Resp BP BP Pulse Ox 06/30/20 11:13 103/64 06/30/20 11:10 36.6 C 62 18 94/58 L 100 06/30/20 08:33 105/68 06/30/20 07:07 36.7 C 74 18 92/59 L 96 06/30/20 03:44 37.0 C 74 16 100/64 95 Laboratory Results Abnormal Lab Results 06/29/20 06/29/20 06/29/20 16:25 20:01 21:09 Sodium Potassium Chloride Carbon Dioxide Anion Gap BUN Creatinine Est Cr Clr Drug Dosing Est GFR ( Amer) Est GFR (Non-Af Amer) BUN/Creatinine Ratio Glucose POC Glucose 379 H* 299 H Calcium Troponin I 20.500 H* Triglycerides Cholesterol LDL Cholesterol, Calc VLDL Cholesterol, Calc HDL Cholesterol Cholesterol/HDL Ratio Hepatitis C Ab Screen 06/30/20 06/30/20 06/30/20 06:26 06:26 07:06 Sodium 138 Potassium 3.9 D Chloride 108 H Carbon Dioxide 23 Anion Gap 7.0 BUN 27 H D Creatinine 1.22 H Est Cr Clr Drug Dosing 47.9 Est GFR ( Amer) 51.6 Est GFR (Non-Af Amer) 44.5 BUN/Creatinine Ratio 22.2 H Glucose 251 H POC Glucose 296 H Calcium 9.5 Troponin I 19.300 H* Triglycerides 110 Cholesterol 209 H LDL Cholesterol, Calc 141 VLDL Cholesterol, Calc 22 HDL Cholesterol 46 Cholesterol/HDL Ratio 5 Hepatitis C Ab Screen Neg 06/30/20 11:05 Sodium Potassium Chloride Carbon Dioxide Anion Gap BUN Creatinine Est Cr Clr Drug Dosing Est GFR ( Amer) Est GFR (Non-Af Amer) BUN/Creatinine Ratio Glucose POC Glucose 138 H Calcium Troponin I Triglycerides Cholesterol LDL Cholesterol, Calc VLDL Cholesterol, Calc HDL Cholesterol Cholesterol/HDL Ratio Hepatitis C Ab Screen PG Care Time/CCT Total # of Minutes Spent Total Time Spent with Patient: Total time spent is greater than 50% in coordination of care (as documented) at patient's floor/unit and/or counseling patient: Coding Level of Care Code 07371 Subseq Hosp Care Lvl 2 Diagnoses Acute SD, inferior wall I21.19 Hypertension I10 Hypercholesterolemia E78.00 Diabetes mellitus type 2 in obese E11.69; E66.9
--- NOTE | 2020-06-30 13:09 | Electrocardiogram Report ---
Test Reason : Blood Pressure : / mmHG Vent. Rate : 078 BPM Atrial Rate : 078 BPM P-R Int : 186 ms QRS Dur : 088 ms QT Int : 406 ms P-R-T Axes : 044 014 -38 degrees QTc Int : 462 ms Normal sinus rhythm T wave abnormality, consider inferior ischemia T wave abnormality, consider anterolateral ischemia Abnormal ECG When compared with ECG of 29-JUN-2020 10:45, No significant change was found Confirmed by Humberto Erwin ([id number]) on 06/30/2020 1:09:11 PM Referred By: REFERRED SELF Confirmed By:Dylan Erwin
[2020-06-30] MEDS: EZETIMIBE 10 MG TABLET PO SCH (15:50)
[2020-06-30] MEDS ORDERED: ACETAMINOPHEN 500 MG TAB PO PRN (21:01)
[2020-07-01] MEDS ORDERED: INSULIN ASPART 100 UNITS/ML 3 ML PEN SC SCH
[2020-07-01 06:19] LABS: Estimated Average Glucose 283 mg/dl; Hemoglobin A1C 11.5 % (4.5-5.6)
[2020-07-01] MEDS: INSULIN ASPART 100 UNITS/ML 3 ML PEN SC SCH ×2 (07:49→12:00)
[2020-07-01] MEDS: METOPROLOL TARTRATE 25 MG TAB PO SCH (08:44)
[2020-07-01] MEDS: TICAGRELOR 90 MG TAB PO SCH (08:44)
[2020-07-01] MEDS: ASPIRIN 81 MG ECTAB PO SCH (08:44)
--- NOTE | 2020-07-01 08:44 | Pharmacy Report ---
Pharmacy Glycemic Short Note 2 - Date of Service July 01, 2020 - Glycemic Short BSG Results (Last 24 hours): 06/30/20 06/30/20 06/30/20 11:05 16:17 20:43 POC Glucose 138 H 132 H 107 H 07/01/20 07/01/20 00:04 07:12 POC Glucose 108 H 104 H OUTPATIENT ANTIDIABETIC REGIMEN: * Ozempic 0.25 mg SC weekly (recently started in April of this year) * HbA1c: 11.8% (May 2020) - per patient * Patient reported allergy/adverse reaction to metformin (abdominal pain, nausea, and vomiting) ASSESSMENT: 07/01/20 * BSGs yesterday much better controlled, 296, 138, 132, and 107 mg/dL * Patient received 20 units of lantus and 22 units of prandial/correctional bolus (42 units total) * Fasting BSG of 104 mg/dL this morning, which is a significant improvement from days previous - will slightly decrease Lantus today 06/30/20 * Pt has received 38 units of insulin over the past 24hrs * 20 units of basal with Lantus * 18 units of bolus with NovoLog * Pharmacy dosed insulin conservatively on admission since patient was very resistant to any insulin administration. * BSGs still remain all above 250mg/dl therefore will increase insulin regimen. * Will try to keep basal insulin once daily (as opposed to BID) to prep for DC. Once daily administration may increase compliance/adherence. 06/29/20 * DM is a 70 year old female POD #1 s/p lumpectomy who subsequently presented to ED with chest/shoulder pain and was diagnosed with acute STEMI - underwent PCI today * BSGs significantly elevated today at 224, 276, and 379 mg/dL * Pharmacy consulted for glycemic management with BSG of 379 mg/dL * Per RN, patient was refusing insulin prior to glycemic consult * Per patient interview, she is adamant about not taking insulin as an outpatient, but agreeable to short-term conservative insulin regimen while inpatient * Anticipate that this will be insufficient to control BSGs, but it is better than no treatment * Reports that fasting BSGs are typically in the 170s since starting Ozempic (200s prior to that) * Would likely benefit from education/counseling from certified low vision therapist prior to discharge * K+: 3.3 mmoL/L this morning + recent cardiac event and patient apprehension to insulin - will use SC for now PLAN FOR INPATIENT GLYCEMIC CONTROL: * Basal insulin - 10% reduction * Lantus 18 units SC daily * Bolus insulin: continue * NovoLog per scale ACHS or Q6hrs while NPO. * Goal Range: Low 110 mg/dL - High 150 mg/dL * Correction Factor: 25 mg/dL/unit * Nutritional / Prandial insulin per carb ratio of 1 unit per 7 grams CHO consumed PLAN FOR DISCHARGE: * A1c = 11.8% on 05/22/20 * Goal A1c < 7% based on age/co-morbidities. * A1c is greater than or equal to 10% --> consider triple therapy with metformin + basal insulin + (GLP1-RA OR prandial insulin). May need to continue additional antidiabetic agent based on patient specific factors (efficacy, hypo risk, weight gain/loss, side effects, cost) * If patient is willing to try insulin as an outpatient, would suggest a once daily basal insulin * Suggest insulin glargine 25 units SQ daily as a reasonable/safe dose to start. Patient should continue to monitor fasting BSGs and will require prompt outpatient follow-up for further insulin dose titrations. * Patient reports intolerance to metformin - will hold off at this time * Continue Ozempic. Since patient started this in April (4+ weeks ago) may increase dose to 0.5 mg SQ weekly.
[2020-07-01] MEDS: EZETIMIBE 10 MG TABLET PO SCH (08:45)
[2020-07-01] MEDS: IRBESARTAN 150 MG TAB PO SCH (08:45)
[2020-07-01] MEDS ORDERED: INSULIN GLARGINE SOLOSTAR 100 UNITS/ML 3 ML PEN SC SCH ×2 (09:00)
[2020-07-01 09:53] LABS: Hematocrit (blood only) 35.8 % (37-47); Hemoglobin 12.3 g/dL (12.0-16.0); Mean Corpuscular Hemoglobin 30.5 pg (25-34); Mean Corpuscular Hgb Conc 34.4 g/dL (32-36); Mean Corpuscular Volume 88.8 fL (80-100); Mean Platelet Volume 10.6 fL (7.4-10.4); Platelet Count 284 K/uL (130-400); RDW Coefficient of Variation 12.6 % (11.5-14.5); RDW Standard Deviation 40.7 fL (36.4-46.3); Red Blood Count 4.03 M/uL (4.2-5.4); White Blood Count 12.62 K/uL (4.8-10.8)
[2020-07-01 10:30] LABS: BUN Creatinine Ratio 31.9 (10-20); Calcium 9.5 mg/dl (8.5-10.1); Creatinine Clr Calc Pharmacy 57.1 ml/min; Est GFR (African American) 64.1; Est GFR (Non-African American) 55.3; Potassium 3.7 mmol/L (3.5-5.1)
--- NOTE | 2020-07-01 11:42 | Hospitalist Progress Note ---
Date of Service July 01, 2020 Assessment & Plan (1) Acute MO, inferior wall: as per primary team.s/p RCA stent DOing well, no CP, no CHF, no events on tele continue ticagrelor and asa. On Zetimibe due to intolerance to statins -started metoprolol and dc HCTZ for mildly symptomatic low BPs -continue irbesartan f/u with Cardiology as outpt (2) Hx of migraines: Appears controlled at this time (3) Hypertension: B/P at goal will cont. BB and ARB dc HCTZ as above (4) Hypercholesterolemia: started Zetia (5) Diabetes mellitus type 2 in obese: Severely uncontrolled due to recent stressors, of A1C 11.5%. plan to start Lantus at home 25 units once daily restart Ozempic once home intolerant to metformin f/u with PCP and can increase Ozempic to 0.5 and decrease Lantus in future (6) Papilloma of breast: s/p lumpectomy the day prior to admission dressing appears c/d/i, no signs of infection WBC count mildly elevated at 12 but no fevers, no erythema asked her surgeon to stop by and see her before discharge today Dispo-stable for dc to home today as per my d/w Cardiology Admission and Anticipated Discharge Date Admission Date: July 01, 2020 Subjective Pt feeling well, no CP or SOB, is woody po. No pain at cath site. Glucose readings excellent and she is willing to use Lantus at home, has some already from her 's old Rx as he recently . Tele with NSR, SB, rates 50s-70s Spoke with Cardiology at bedside Review of Systems Review of Systems: All systems reviewed & are unremarkable except as noted in HPI & below Physical Exam Constitutional: WD/WN, vitals as above Eyes: + anicteric sclerae Neck: trachea midline, no thyromegaly Respiratory: normal respiratory effort, lungs clear to auscultation Cardiovascular: RRR, no murmur, no edema Chest (Breasts): normal inspection/palpation of breasts (right inframammary region with dressing c/d/i,no erythema) Gastrointestinal (Abdomen): normal bowel sounds, soft, nontender, no hepatosplenomegaly Musculoskeletal: Extremities: extremities normal to inspection; no cyanosis and no clubbing Skin: no rashes, warm and dry Neurologic: moves all extremities and awake; no focal motor deficits Psychiatric: A+Ox3, euthymic affect Lymphatic: no lymphedema Results & Data Results & Data ([facility]) Vital Signs (Past 12 Hours) Vital Signs Temp Pulse Pulse Resp BP BP Pulse Ox 07/01/20 07:33 63 07/01/20 07:09 36.8 C 65 18 112/71 98 07/01/20 03:45 36.5 C 67 18 113/72 95 Laboratory Results Laboratory Results WBC 12.62 K/uL (4.8-10.8) H 07/01/20 09:20 RBC 4.03 M/uL (4.2-5.4) L 07/01/20 09:20 Hgb 12.3 g/dL (12.0-16.0) 07/01/20 09:20 Hct 35.8 % (37-47) L 07/01/20 09:20 MCV 88.8 fL (80-100) 07/01/20 09:20 MCH 30.5 pg (25-34) 07/01/20 09:20 MCHC 34.4 g/dL (32-36) 07/01/20 09:20 RDW Std Deviation 40.7 fL (36.4-46.3) 07/01/20 09:20 RDW Coeff of Manoj 12.6 % (11.5-14.5) 07/01/20 09:20 Plt Count 284 K/uL (130-400) 07/01/20 09:20 MPV 10.6 fL (7.4-10.4) H 07/01/20 09:20 Immature Gran % (Auto) 0.4 % 06/29/20 07:00 Neut % (Auto) 68.1 % 06/29/20 07:00 Lymph % (Auto) 23.3 % 06/29/20 07:00 [place] % (Auto) 5.7 % 06/29/20 07:00 Eos % (Auto) 2.0 % 06/29/20 07:00 Baso % (Auto) 0.5 % 06/29/20 07:00 Neut # (Auto) 5.45 K/uL (1.4-6.5) 06/29/20 07:00 Lymph # (Auto) 1.87 K/uL (1.2-3.4) 06/29/20 07:00 [place] # (Auto) 0.46 K/uL (0.11-0.59) 06/29/20 07:00 Eos # (Auto) 0.16 K/uL (0-0.5) 06/29/20 07:00 Baso # (Auto) 0.04 K/uL (0-0.2) 06/29/20 07:00 Immature Gran # (Auto) 0.03 K/uL (0.00-0.02) H 06/29/20 07:00 D-Dimer 580 ug/L FEU (0-500) H* 06/29/20 07:00 Sodium 140 mmol/L (136-145) 07/01/20 09:20 Potassium 3.7 mmol/L (3.5-5.1) 07/01/20 09:20 Chloride 109 mmol/L (98-107) H 07/01/20 09:20 Carbon Dioxide 30 mmol/L (21-32) 07/01/20 09:20 Anion Gap 1.0 (3-11) L 07/01/20 09:20 BUN 33 mg/dl (7-18) H 07/01/20 09:20 Creatinine 1.02 mg/dl (0.6-1.2) 07/01/20 09:20 Est Cr Clr Drug Dosing 57.1 ml/min 07/01/20 09:20 Est GFR ( Amer) 64.1 07/01/20 09:20 Est GFR (Non-Af Amer) 55.3 07/01/20 09:20 BUN/Creatinine Ratio 31.9 (10-20) H 07/01/20 09:20 Glucose 105 mg/dl (70-99) H 07/01/20 09:20 POC Glucose 120 mg/dl (70-99) H 07/01/20 11:32 Estimat Average Glucose 283 mg/dl 06/30/20 06:26 Hemoglobin A1c 11.5 % (4.5-5.6) H 06/30/20 06:26 Calcium 9.5 mg/dl (8.5-10.1) 07/01/20 09:20 Total Bilirubin 0.7 mg/dl (0.2-1) 06/29/20 07:00 AST 18 U/L (15-37) 06/29/20 07:00 ALT 26 U/L (12-78) 06/29/20 07:00 Alkaline Phosphatase 114 U/L (45-117) 06/29/20 07:00 Troponin I 19.300 ng/ml (0-0.045) H* 06/30/20 06:26 Total Protein 7.5 gm/dl (6.4-8.2) 06/29/20 07:00 Albumin 3.7 gm/dl (3.4-5.0) 06/29/20 07:00 Globulin 3.8 gm/dl (2.5-4.0) 06/29/20 07:00 Albumin/Globulin Ratio 1.0 (0.9-2) 06/29/20 07:00 Triglycerides 110 mg/dl (0-150) 06/30/20 06:26 Cholesterol 209 mg/dl (0-200) H 06/30/20 06:26 LDL Cholesterol, Calc 141 mg/dl 06/30/20 06:26 VLDL Cholesterol, Calc 22 mg/dl 06/30/20 06:26 HDL Cholesterol 46 mg/dl 06/30/20 06:26 Cholesterol/HDL Ratio 5 06/30/20 06:26 Lipase 129 U/L (73-393) 06/29/20 07:00 Nasal Screen MRSA (PCR) Negative (Negative) 06/29/20 09:15 COVID-19 Eval Order CovFluRsv at [facility] 06/29/20 07:10 SARS-CoV-2 (PCR) NEGATIVE (Negative) 06/29/20 07:10 Hepatitis C Ab Screen Neg (Neg) 06/30/20 06:26 Influenza Type A (PCR) Negative (Neg) 06/29/20 07:10 Influenza Type B (PCR) Negative (Neg) 06/29/20 07:10 RSV (RT-PCR) Negative (Neg) 06/29/20 07:10 Impressions Chest X-Ray 06/29/20 06:35 XR chest 1V portable CLINICAL HISTORY: Atypical chest pain COMPARISON STUDY: No previous studies for comparison. FINDINGS: The heart is mildly enlarged. There is no failure. There is no focal pulmonary consolidation. There are no pleural effusions. Multiple electrodes and wires project over the chest.[ IMPRESSION: No active disease in the chest. ACT 112: Negative or not required by law. Electronically signed by: Ruel Martinez M.D. 06/29/2020 8:09 AM PG Care Time/CCT Total # of Minutes Spent Total Time Spent with Patient: Total time spent is greater than 50% in coordination of care (as documented) at patient's floor/unit and/or counseling patient: Coding Level of Care Code 98075 Subseq Hosp Care Lvl 3 Diagnoses Acute MO, inferior wall I21.19 Hx of migraines Z86.69 Hypertension I10 Hypercholesterolemia E78.00 Diabetes mellitus type 2 in obese E11.69; E66.9 Papilloma of breast D24.9
[2020-07-01] MEDS ORDERED: TICAGRELOR 90 MG TAB PO SCH (13:30)
[2020-07-01] MEDS ORDERED: Nursing to Pharmacy Communication SCH (13:30)
--- NOTE | 2020-07-02 17:15 | Discharge Summary ---
Date of Service July 02, 2020 Admission HPI Per Admitting Provider The patient is a 70-year-old woman without a known history of cardiac disease who does suffer from occasional asthma attacks the patient's symptoms of asthma tend to be worse in the spring and attributes this to some allergies. Early this morning the patient awoke from sleep with some symptoms of chest pressure. She attributed this to an asthma exacerbation and took an albuterol inhaler. Her symptoms are fairly mild at that time. She drove her daughter to work around 6:00 a.m. and due to the persistent nature of her symptoms as well as the development of back arm and jaw discomfort sought attention at the emergency room. She was diagnosed with an acute inferior infarct in taken emergently to the catheterization suite where she underwent percutaneous intervention to the right coronary artery. During the procedure she had some transient bradycardia which responded to atropine. Otherwise, no significant complication. The patient states she is an active individual who is accustomed to routine activity. She has some difficulties with asthma as noted above but has not had symptoms of jaw or back discomfort previously. Currently she claims to be feeling well she has not had any recurrence of her i ndex symptoms. She has had some mild discomfort in the left shoulder area which was worse with her echocardiogram. She attributes this to musculoskeletal pain. Principal Diagnosis q Discharge Exam Alert, ambulatory. Normal respiratory effort and lung examination Cardiac rhythm was regular. No peripheral edema Discharge Data Allergies Allergy/AdvReac Type Severity Reaction Status Date / Time epinephrine Allergy Severe HIVES, Verified 06/20/20 13:29 TACHYCARDIA, PANIC ATTACK acetaminophen Allergy Unknown OVERSTIMULA Verified 06/20/20 13:29 TION albuterol Allergy Unknown TACHYCARDIA Verified 06/20/20 13:29 AND ITCHING benzonatate Allergy Unknown UNABLE TO Verified 06/20/20 13:29 SLEEP fexofenadine Allergy Unknown ITCHING Verified 06/20/20 13:29 AND UNABLE TO SLEEP iodine Allergy Unknown N/V Verified 06/20/20 13:29 lisinopril Allergy Unknown COUGHING Verified 06/20/20 13:29 loratadine Allergy Unknown DRY MOUTH Verified 06/20/20 13:29 metformin Allergy Unknown ABDOMINAL Verified 06/20/20 13:29 PAIN AND N/V naproxen Allergy Unknown DIZZINESS Verified 06/20/20 13:29 oxycodone Allergy Unknown OVERSTIMULA Verified 06/20/20 13:29 TION Penicillins Allergy Unknown RASH Verified 06/20/20 13:29 pirbuterol Allergy Unknown TACHYCARDIA Verified 06/20/20 13:29 AND ITCHING povidone-iodine Allergy Unknown BLISTERS Verified 06/20/20 13:29 AND RASH propoxyphene Allergy Unknown OVERSTIMULA Verified 06/20/20 13:29 TION Hyudvbp-Rbn-Foi Reductase Allergy Unknown RASH Verified 06/20/20 13:29 Inhibitor procaine AdvReac Unknown HYPERSENSIT Verified 06/20/20 13:29 IVITY shrimp AdvReac Unknown SEAFOOD--N/ Verified 06/20/20 13:29 V BETADINE Allergy Intermediate Swelling Uncoded 06/20/20 13:29 TRACE METALS Allergy Unknown SKIN Uncoded 06/20/20 13:29 IRRITATION Consultations 06/29/20 09:04 Consult Internal Medicine Routine 06/29/20 10:48 Consult Grounds Restoration Specialist Routine 06/30/20 12:43 Consult Hospitalist Routine Procedures Performed Operation Date: 06/29/20 07:00 Actual Procedures s Cineradiography w/Routine Exam - Bill Sarabia MD p Aspiration/PCI w/MICHAEL for Stemi - Juan Singer MD Ordered Studies 06/29/20 07:26 CL Cath Imgs for PACS use only Stat Diabetes Follow up Diabetes Follow-up Needed for HgbA1c >9% Hospital Course (1) Acute AK, inferior wall: Patient underwent emergent percutaneous intervention to the proximal right coronary artery with placement of a 4 x 23 mm Xience drug-eluting stent. There was some transient bradycardia which responded to atropine. Apparently the available catheters only allowed for non selective visualization of the left coronary system, but no discrete lesions were identified. The patient was started on he standard post AK regimen including beta blockade, ARB, dual anti-platelet therapy and anti-lipid therapy with Zetia. She had previously been on her losartan hydrochlorothiazide. Hydrochlorothiazide was discontinued in order to allow for better blood pressure in facilitate beta- blockade. There is no electrical instability, recurrent ischemic symptoms or development of congestive heart failure. An echocardiogram did demonstrate mildly reduced LV systolic function with regional wall motion abnormalities thought to represent stunned myocardium. (2) Hypertension: No hypertension. Some lower blood pressures initially with institution of medical therapy. (3) Hypercholesterolemia: She had a very odd reaction to statin therapy in the past. This apparently involved photosensitivity. She would like to try alternative agents 1st. Will use Zetia at 1st. She would likely be best served by rechallenge with statin therapy. Alternatively a PSK9 inhibitor (4) Diabetes mellitus type 2 in obese: Blood sugars improved with insulin therapy. The medicine service evaluated her during her admission and made some recommendations as well as coordinated outpatient care. Total Time Total Time Spent Total Time Spent (In Minutes): 25 Total Time Includes: Examination of the Patient, Discharge Planning, Medication Reconciliation and Communication With Other Providers Discharge Plan Discharge Items Patient Disposition: Home - Self-Care Reason For Visit: STEMI Discharge Diagnosis: STEMI Condition on Discharge: Good Activity: Per Instructions section Activity Comment: NO VIGOROUS USE OF RIGHT WRIST FOR 5 DAYS Lifting: No more than 5 pounds Bathing: No limitations Driving/Machine Use: No limitations Non-emergency contact: Engine Room Helper Call non-emergency contact if: you have any medication questions and your s ymptoms worsen Follow-up/Referrals: Virgilio Giles MD [Primary Care Provider] - Diet: Carb Consistent or DM2 and Heart Healthy Addtl Attending Provider Instructions: Will follow-up with [facility] Cardiology. Pending Studies at Discharge: No Stand-Alone Forms: My [employer], Smoking Cessation Medications and DC Order Prescriptions: New irbesartan 150 mg Tablet 150 mg PO QAM Qty: 30 RF: 0 ezetimibe 10 mg Tablet 10 mg PO QAM Qty: 30 RF: 0 metoprolol tartrate 25 mg Tablet 25 mg PO BID Qty: 60 RF: 0 Lantus Solostar U-100 Insulin 100 unit/mL (3 mL) Insulin Pen 25 unit SC DAILY Qty: 3 RF: 0 Brilinta 90 mg Tablet 90 mg PO BID Qty: 60 RF: 0 Continued fluticasone propionate 50 mcg/actuation spray,suspension 1 spray intranasal HS RF: 0 montelukast 10 mg tablet 10 mg PO HS RF: 0 aspirin 81 mg tablet,delayed release (DR/EC) 81 mg PO HS RF: 0 cetirizine 10 mg tablet 10 mg PO HS RF: 0 multivitamin Tablet 1 tab PO QAM RF: 0 Ozempic 0.25 mg or 0.5 mg(2 mg/1.5 mL) Pen Injector 0.25 mg SUBCUT WK RF: 0 Atrovent HFA 17 mcg/actuation Hfa Aerosol Inhaler 1 puff INHALATION QID PRN (Reason: sob) RF: 0 Discontinued ibuprofen 200 mg tablet 200 mg PO Q8H PRN (Reason: Pain) RF: 0 irbesartan-hydrochlorothiazide 150-12.5 mg tablet 1 tab PO QAM RF: 0 Discharge Orders: Discharge Order (Routine); Ordered 07/01/20 Ordered By: Bill Erwin Admission Data Admit Date/Time: 07/01/20 07:08 Attending Provider: Juan Singer Admit Provider: Lukas Benton Primary Care Provider: Virgilio Giles Other Providers: Zhane Snyder ; Virgilio Du ; Antonio Landon ; Isael Johnson ; Chris Mcintosh ; Issa Malik ; Debra Tolentino ; Mag Carlin ; Cesar Holt ; Dinorah Jaramillo ; Bianka Avalos ; Flaco Serrano ; Brennan Cruz ; Ivette Fernandez ; Homero Ott ; Amos Becerril ; Nohemy Jimenez ; Bill Alvarado ; Virgilio Hathaway ; Timbo Reeves ; Tila Gonsalez ; Lukas Benton ; Harry North ; Ramsey Unger Other Interventions: Discharge Summary Assessment (RN) Last Done: 07/01/20 12:38 Coding Level of Care Code D/C Day Management >30 mins Diagnoses Acute AK, inferior wall I21.19 Hypertension I10 Hypercholesterolemia E78.00 Diabetes mellitus type 2 in obese E11.69; E66.9
== END 2020-07-01 14:20 | disposition home or self-care (01) | DRG 247 ==
LOC: ED 06:07 → 1E 07:48 → CC 07:48 → 2S 18:06